=== PATIENT | male | born 1985 | race Caucasian/White ===

== ENCOUNTER 2017-09-02 19:33 | Emergency (ER) | payer SELFPAY ==
[2017-09-02] MEDS: IV NORMAL SALINE 1000ML BAG 1,000 ML IV (20:37)
[2017-09-02 20:38] LABS: ADD MAN DIFF? NO
[2017-09-02 20:41] LABS: BASO % 0 % (0-3); EOS % 1 % (0-3); HEMATOCRIT 46.3 % (39.0-53.0); LYMPH # 1.2 x10^3/uL (1.0-4.8); LYMPH % 17 % (24-48); MEAN CORPUSCULAR HEMOGLOBIN 31 pg (25-35); MEAN CORPUSCULAR HGB CONC 34 g/dL (31-37); MEAN CORPUSCULAR VOLUME 91 fL (79-100); MONO # 0.4 x10^3/uL (0.0-1.1); MONO % 6 % (0-9); NEUT # 5.7 x10^3uL (1.8-7.7); NEUT % 77 % (31-73); PLATELET COUNT 337 x10^3/uL (140-400); RED BLOOD COUNT 5.09 x10^6/uL (4.30-5.70); RED CELL DISTRIBUTION WIDTH 13.6 % (11.5-14.5); WHITE BLOOD COUNT 7.4 x10^3/uL (4.0-11.0)
[2017-09-02 20:51] LABS: ETHANOL < 10 mg/dL (0-10)
[2017-09-02 20:54] LABS: ANION GAP 8 (6-14); BLOOD UREA NITROGEN 8 mg/dL (8-26); BUN/CREATININE RATIO 8 (6-20); CALCIUM 9.5 mg/dL (8.5-10.1); CARBON DIOXIDE 29 mmol/L (21-32); CHLORIDE 101 mmol/L (98-107); GFR 86.1; GLUCOSE 108 mg/dL (70-99); POTASSIUM 3.7 mmol/L (3.5-5.1); SODIUM 138 mmol/L (136-145)
[2017-09-02 21:04] LABS: ALBUMIN 4.5 g/dL (3.4-5.0); ALBUMIN/GLOBULIN RATIO 1.2 (1.0-1.7); ALK PHOS 102 U/L (46-116); ALT (SGPT) 27 U/L (16-63); AST (SGOT) 15 U/L (15-37); CKMB INDEX 0.6 % (0-4); CKMB MASS 0.5 ng/mL (0.0-3.6); CREATINE KINASE 81 U/L (39-308); MYOGLOBIN 31 ng/mL (16-96); TOTAL BILIRUBIN 0.3 mg/dL (0.2-1.0); TOTAL PROTEIN 8.2 g/dL (6.4-8.2)
[2017-09-02 21:25] LABS: BILIRUBIN,URINE NEGATIVE (NEG); CLARITY,URINE CLEAR; COLOR,URINE YELLOW; GLUCOSE,URINE NEGATIVE (NEG); NITRITE,URINE NEGATIVE (NEG); PROTEIN,URINE NEGATIVE (NEG-TRACE); UROBILINOGEN,URINE 0.2 mg/dL (0.2 mg/dL)
[2017-09-02 21:31] LABS: BACTERIA,URINE FEW /HPF (0-FEW); RBC,URINE 0 /HPF (0-2); SQUAMOUS EPITHELIAL CELL,UR OCC /LPF; WBC,URINE RARE /HPF (0-4)
[2017-09-02 21:41] LABS: BARBITURATES NEG (NEG); BENZODIAZEPINES NEG (NEG); CANNABINOIDS NEG (NEG); COCAINE NEG (NEG); METHADONE NEG (NEG); OPIATES NEG (NEG); PHENCYCLIDINE NEG (NEG)
[2017-09-02 21:42] LABS: AMPHETAMINE/METHAMPHETAMINE NEG (NEG); ETHANOL, URINE NEG (NEG)
== END 2017-09-02 22:43 | disposition home or self-care (01) ==
LOC: ER 19:33
DX: T67.5XXA Heat exhaustion, unspecified, initial encounter (principal); F10.10 Alcohol abuse, uncomplicated; Z72.0 Tobacco use; X58.XXXA Exposure to other specified factors, initial encounter; Y93.89 Activity, other specified; Y92.89 Other specified places as the place of occurrence of the external cause; Y99.8 Other external cause status
CPT/HCPCS: 36415; 71045; 80053; 80307; 81001; 82553; 83874; 85025; 99285-25; G0480; J7030

== ENCOUNTER 2018-05-17 10:11 | Emergency (ER) | payer SELFPAY ==
[~2018-05-17] VITALS: Ht 177.8 cm; Wt 86.2 kg
[2018-05-17 10:15] VITALS: BP 143/94
[2018-05-17] MEDS ORDERED: ALBUTEROL SULFATE 2.5 MG/3 ML NEBU. NEB ONE (10:45)
[2018-05-17] MEDS ORDERED: IPRATRPIUM/ALBUTEROL 0.5/2.5MG 3 ML NEBU. NEB ONE (11:00)
[2018-05-17] MEDS ORDERED: predniSONE 10 MG TABLET PO ONE (11:00)
--- NOTE | 2018-05-17 11:19 | RAD ---
CHEST PA LATERAL Technique: PA and lateral views of the chest were obtained. Clinical History: COUGH X1 WEEK, DECREASED LUNG SOUNDS. HX OF HYPERTENSION Comparison: September 02, 2017. Findings: The heart and pulmonary vasculature appear within normal limits. The lungs are clear. The pleural margins are clear. Impression: No acute chest process is seen. Electronically signed by: Cameron Horan III, MD (05/17/2018 11:16 AM) [facility]
[2018-05-17 11:20] LABS: INFLUENZA A PATIENT NEGATIVE (NEGATIVE); INFLUENZA B PATIENT NEGATIVE (NEGATIVE)
[2018-05-17] MEDS ORDERED: AZIT250T PO (11:31)
[2018-05-17] MEDS ORDERED: PRED50TA PO (11:31)
[2018-05-17] MEDS ORDERED: ALBU2.5V8 INH (11:31)
--- NOTE | 2018-05-17 11:32 | PHYS DOC ---
Past Medical History Past Medical History: Hypertension Past Surgical History: No Surgical History Alcohol Use: Rarely Additional Information: LAST INTAKE 6 MONTHS AGO Drug Use: Marijuana Adult General Chief Complaint Chief Complaint: COUGH HPI HPI Patient is a 32 year old male who presents with cough and cold symptoms 1 week. The patient states that he has generalized body aches and some shortness of breath. He denies earaches. He states that it started with a sore throat but that has resolved. He has tried [id number] cough and cold medication with little relief. Review of Systems Review of Systems Constitutional: Denies fever or chills [] Eyes: Denies change in visual acuity, redness, or eye pain [] HENT: Denies nasal congestion or sore throat [] Respiratory: See history of present illness Cardiovascular: No additional information not addressed in HPI [] GI: Denies abdominal pain, nausea, vomiting, bloody stools or diarrhea [] : Denies dysuria or hematuria [] Musculoskeletal: Denies back pain or joint pain [] Integument: Denies rash or skin lesions [] Neurologic: Denies headache, focal weakness or sensory changes [] Endocrine: Denies polyuria or polydipsia [] All other systems were reviewed and found to be within normal limits, except as documented in this note. Current Medications Current Medications Current Medications Medications (Trade) Dose Ordered Sig/[place] Start Time Stop Time Status Last Admin Dose Admin Albuterol Sulfate (Ventolin Neb Soln) 2.5 mg 1X ONCE 05/17/18 10:45 05/17/18 10:46 DC 05/17/18 10:47 2.5 MG Albuterol/ Ipratropium (Duoneb) 3 ml 1X ONCE 05/17/18 11:00 05/17/18 11:03 DC 05/17/18 11:08 3 ML Prednisone (Prednisone) 50 mg 1X ONCE 05/17/18 11:00 05/17/18 11:03 DC 05/17/18 11:41 50 MG Allergies Allergies Allergies Coded Allergies Type Severity Reaction Last Updated Verified No Known Drug Allergies 09/02/17 No Physical Exam Physical Exam Constitutional: Well developed, well nourished, no acute distress, non-toxic appearance. [] HENT: Normocephalic, atraumatic, bilateral tympanic membranes normal, oropharynx moist, no oral exudates, nose normal. [] Eyes: PERRLA, EOMI, conjunctiva normal, no discharge. [] Neck: Normal range of motion, no tenderness, supple, no stridor. [] Cardiovascular:Heart rate regular rhythm, no murmur [] Lungs & Thorax: Bilateral breath sounds clear to auscultation [] Abdomen: Bowel sounds normal, soft, no tenderness, no masses, no pulsatile masses. [] Skin: Warm, dry, no erythema, no rash. [] Back: No tenderness, no CVA tenderness. [] Extremities: No tenderness, no cyanosis, no clubbing, ROM intact, no edema. [] Neurologic: Alert and oriented X 3, normal motor function, normal sensory function, no focal deficits noted. [] Psychologic: Affect normal, judgement normal, mood normal. [] Current Patient Data Vital Signs Vital Signs Date Time Temp Pulse Resp B/P (MAP) Pulse Ox O2 Delivery O2 Flow Rate FiO2 05/17/18 11:10 Room Air 05/17/18 10:15 98.1 118 20 143/94 (110) 99 98.1 Lab Values Laboratory Tests Test 05/17/18 10:30 Influenza Type A Antigen Negative (NEGATIVE) Influenza Type B Antigen Negative (NEGATIVE) EKG EKG [] Radiology/Procedures Radiology/Procedures []PATIENT: KIMBER SUAZO [facility]: [id number]#: [id number] : 1985 LOCATION: ER AGE: 32 SEX: M EXAM STATUS: REG ER ORD. PHYSICIAN: RACHEL URIBE APRN REASON: cough x 1 week, decreased lung sound PROCEDURE: CHEST PA & LATERAL CHEST PA LATERAL Technique: PA and lateral views of the chest were obtained. Clinical History: COUGH X1 WEEK, DECREASED LUNG SOUNDS. HX OF HYPERTENSION Comparison: September 02, 2017. Findings: The heart and pulmonary vasculature appear within normal limits. The lungs are clear. The pleural margins are clear. Impression: No acute chest process is seen. Electronically signed by: Terrell Shi III, MD (05/17/2018 11:16 AM) [facility] DICTATED and SIGNED BY: TERRELL SHI III, MD DATE: 05/17/18 9588 Course & Med Decision Making Course & Med Decision Making Pertinent Labs and Imaging studies reviewed. (See chart for details) []The patient had an albuterol treatment followed by a DuoNeb with much improved lung sounds. He was also given prednisone in the emergency department. Tricia Disclaimer Tricia Disclaimer This electronic medical record was generated, in whole or in part, using a voice recognition dictation system. Departure Departure Impression: Primary Impression: Bronchitis Disposition: HOME, SELF-CARE Condition: STABLE Referrals: NO PCP (PCP) Patient Instructions: Bronchitis Additional Instructions: Take the medications as directed. Follow-up with your primary care provider in 4 days if not improving or return to the emergency department if worsening. Scripts Prednisone (PREDNISONE) 50 Mg Tablet 1 TAB PO DAILY for bronchitis, #5 TAB Prov: RACHEL URIBE APRN 05/17/18 Albuterol Sulfate (Proair Hfa) 8.5 Gm Hfa.aer.ad 1 PUFF INH PRN Q6HRS PRN for SHORTNESS OF BREATH, #1 INHALER Prov: RACHEL URIBE APRN 05/17/18 Azithromycin (ZITHROMAX) 250 Mg Tablet 1 PKG PO UD for bronchitis, #1 PKG Prov: RACHEL URIBE APRN 05/17/18 RACHEL URIBE APRN May 17, 2018 11:32
== END 2018-05-17 11:49 | disposition home or self-care (01) ==
LOC: ER 10:11
DX: J40 Bronchitis, not specified as acute or chronic (principal); M79.18 Myalgia, other site
CPT/HCPCS: 71046; 87804; 94640; 99284; J7512; J7613; J7620

== ENCOUNTER 2018-07-27 14:11 | Emergency (ER) | payer SELFPAY ==
[~2018-07-27] VITALS: Ht 177.8 cm; Wt 86.2 kg
[~2018-07-27 14:11] MED LIST: ALBU2.5V8 INH; AZIT250T PO; PRED50TA PO
[2018-07-27 14:15] VITALS: BP 143/85
[2018-07-27] MEDS ORDERED: DEXAMETHASONE 4 MG TABLET PO STA (15:08)
--- NOTE | 2018-07-27 15:19 | PHYS DOC ---
Past Medical History Past Medical History: Hypertension (ASHU TIRADO APRN) Past Surgical History: No Surgical History (ASHU TIRADO APRN) Alcohol Use: Rarely Drug Use: Marijuana (ASHU TIRADO APRN) Adult General Chief Complaint Chief Complaint: COUGH HPI HPI Patient is a 33 year old male who presents with cough x 3 days. Associated symptoms include runny nose, fatigue, and coughing up mucus. Has also been fe eling hot and cold. Does not complain of any pain. (ASHU TIRADO APRN) Review of Systems Review of Systems Constitutional: Reports hot/cold, denies fever Eyes: Denies change in visual acuity, redness, or eye pain [] HENT: Reports nasal congestion and runny nose but denies sore throat [] Respiratory: Reports cough but denies shortness of breath [] Cardiovascular: No additional information not addressed in HPI [] GI: Denies abdominal pain, nausea, vomiting, bloody stools or diarrhea [] : Denies dysuria or hematuria [] Musculoskeletal: Denies back pain or joint pain [] Integument: Denies rash or skin lesions [] Neurologic: Denies headache, focal weakness or sensory changes [] Endocrine: Denies polyuria or polydipsia [] Complete systems were reviewed and found to be within normal limits, except as documented in this note. (ASHU TIRADO APRN) Current Medications Current Medications Current Medications Medications (Trade) Dose Ordered Sig/[place] Start Time Stop Time Status Last Admin Dose Admin Dexamethasone (Decadron) 10 mg 1X STAT 07/27/18 15:08 07/27/18 15:09 DC 07/27/18 15:29 10 MG (ASHU ENGLE DO) Allergies Allergies Allergies Coded Allergies Type Severity Reaction Last Updated Verified No Known Drug Allergies 09/02/17 No (ASHU ENGLE DO) Physical Exam Physical Exam Constitutional: Well developed, well nourished, no acute distress, non-toxic appearance. [] HENT: Normocephalic, atraumatic, bilateral external ears normal, oropharynx moist, no oral exudates, nose normal. [] Eyes: PERRLA, EOMI, conjunctiva normal, no discharge. [] Neck: Normal range of motion, no tenderness, supple, no stridor. [] Cardiovascular:Heart rate regular rhythm, no murmur [] Lungs & Thorax: Bilateral breath sounds clear to auscultation [] Abdomen: Soft, no tenderness, no masses, no pulsatile masses. [] Skin: Warm, dry, no erythema, no rash. [] Back: No tenderness, no CVA tenderness. [] Extremities: No tenderness, no cyanosis, no clubbing, ROM intact, no edema. [] Neurologic: Alert and oriented X 3, normal motor function, normal sensory function, no focal deficits noted. [] Psychologic: Affect normal, judgement normal, mood normal. [] (ASHU TIRADO APRN) Current Patient Data Vital Signs Vital Signs Date Time Temp Pulse Resp B/P (MAP) Pulse Ox O2 Delivery O2 Flow Rate FiO2 07/27/18 14:15 97.8 90 20 143/85 (104) 100 Room Air 97.8 (ASHU ENGLE DO) EKG EKG [] (ASHU TIRADO APRN) Radiology/Procedures Radiology/Procedures []PATIENT: KIMBER SUAZO ORCCOUNT: [id number]#: [id number] : 1985 LOCATION: ER AGE: 33 SEX: M EXAM STATUS: REG ER ORD. PHYSICIAN: ASHU TIRADO APRN REASON: cough x 3 days PROCEDURE: CHEST PA & LATERAL PA and lateral chest radiographs 07/27/2018 Clinical History: Cough for 3 days. PA and lateral digital radiographs of the chest were obtained. Comparison study is dated 05/17/2018. The cardiac and mediastinal silhouettes are within normal limits in size and configuration. No pulmonary infiltrate is seen. No pleural effusion or pneumothorax is noted. The osseous structures are unchanged. Impression: No acute abnormality is seen. Electronically signed by: Thiago Jeffries MD (07/27/2018 3:35 PM) [facility] (ASHU TIRADO APRN) Course & Med Decision Making Course & Med Decision Making Pertinent Labs and Imaging studies reviewed. (See chart for details) Will get chest xray and give dexamethasone. Patient is agreeable. Chest x-ray is negative. Will dc home. (ASHU TIRADO APRN) Dragon Disclaimer Dragon Disclaimer This electronic medical record was generated, in whole or in part, using a voice recognition dictation system. (ASHU TIRADO APRN) Departure Departure Impression: Primary Impression: Bronchitis Disposition: HOME, SELF-CARE Condition: STABLE Referrals: NO PCP (PCP) Patient Instructions: Acute Bronchitis Additional Instructions: Follow up with your primary care doctor. Return to ER if symptoms worsen. Scripts Benzonatate (TESSALON PERLE) 100 Mg Capsule 1 CAP PO TID PRN for COUGH, #21 CAP Prov: ASHU TIRADO APRN 07/27/18 Attending Signature Attending Signature I have reviewed the PA/EMPLOYMENT PROGRAMS ANALYST's note and plan of care. I was available for consultation as needed during the patient's visit in the emergency department. I agree with the clinical impression, plan, and disposition. (ASHU ENGLE DO) ASHU TIRADO APRN July 27, 2018 15:19 ASHU ENGLE DO July 29, 2018 01:21
--- NOTE | 2018-07-27 15:39 | RAD ---
PA and lateral chest radiographs 07/27/2018 Clinical History: Cough for 3 days. PA and lateral digital radiographs of the chest were obtained. Comparison study is dated 05/17/2018. The cardiac and mediastinal silhouettes are within normal limits in size and configuration. No pulmonary infiltrate is seen. No pleural effusion or pneumothorax is noted. The osseous structures are unchanged. Impression: No acute abnormality is seen. Electronically signed by: Thiago Jeffries MD (07/27/2018 3:35 PM) [facility]
[2018-07-27] MEDS ORDERED: BENZ100C PO (15:43)
== END 2018-07-27 15:57 | disposition home or self-care (01) ==
LOC: ER 14:11
DX: J40 Bronchitis, not specified as acute or chronic (principal); R53.83 Other fatigue; I10 Essential (primary) hypertension
CPT/HCPCS: 71046; 99284; J8540

== ENCOUNTER 2018-09-11 00:57 | Emergency (ER) | payer SELFPAY ==
[~2018-09-11] VITALS: Ht 177.8 cm; Wt 81.6 kg
[~2018-09-11 00:57] MED LIST changes: +BENZ100C PO
[2018-09-11 01:57] LABS: BASO % 0 % (0-3); EOS # 0.1 x10^3/uL (0.0-0.7); EOS % 1 % (0-3); HEMATOCRIT 47.3 % (39.0-53.0); HEMOGLOBIN 16.3 g/dL (13.0-17.5); LYMPH # 2.3 x10^3/uL (1.0-4.8); LYMPH % 27 % (24-48); MEAN CORPUSCULAR HEMOGLOBIN 31 pg (25-35); MEAN CORPUSCULAR HGB CONC 35 g/dL (31-37); MEAN CORPUSCULAR VOLUME 90 fL (79-100); MONO # 1.1 x10^3/uL (0.0-1.1); MONO % 13 % (0-9); NEUT # 4.9 x10^3uL (1.8-7.7); NEUT % 59 % (31-73); PLATELET COUNT 284 x10^3/uL (140-400); RED BLOOD COUNT 5.25 x10^6/uL (4.30-5.70); RED CELL DISTRIBUTION WIDTH 13.5 % (11.5-14.5); WHITE BLOOD COUNT 8.4 x10^3/uL (4.0-11.0)
[2018-09-11 02:00] LABS: BILIRUBIN,URINE NEGATIVE (NEG); CLARITY,URINE CLEAR; COLOR,URINE YELLOW; NITRITE,URINE NEGATIVE (NEG); PROTEIN,URINE NEGATIVE (NEG-TRACE); UROBILINOGEN,URINE 0.2 mg/dL (0.2 mg/dL)
[2018-09-11] MEDS ORDERED: IV NORMAL SALINE 1000ML BAG 1,000 ML IV ONE (02:00)
[2018-09-11 02:05] LABS: BACTERIA,URINE 0 /HPF (0-FEW); RBC,URINE 0 /HPF (0-2); SQUAMOUS EPITHELIAL CELL,UR OCC /LPF; WBC,URINE 0 /HPF (0-4)
[2018-09-11 02:08] LABS: CALCIUM 9.4 mg/dL (8.5-10.1); CREATININE 0.9 mg/dL (0.7-1.3); GFR 96.6; POTASSIUM 3.2 mmol/L (3.5-5.1)
[2018-09-11 02:14] LABS: ALBUMIN 4.5 g/dL (3.4-5.0); ALBUMIN/GLOBULIN RATIO 1.3 (1.0-1.7); TOTAL BILIRUBIN 0.5 mg/dL (0.2-1.0)
[2018-09-11 03:00] VITALS: BP 129/68
[2018-09-11] MEDS ORDERED: LORA-434 PO (03:11)
--- NOTE | 2018-09-11 04:29 | PHYS DOC ---
Past Medical History Past Medical History: Hypertension Past Surgical History: No Surgical History Alcohol Use: None Drug Use: None Adult General Chief Complaint Chief Complaint: MULTIPLE COMPLAINTS HPI HPI Patient is a 33 year old male presents the emergency room chief complaint of just not feeling right he is very shaky all day today. He was moving furniture he was making him very tired he was feeling very anxious he was feeling his heart was racing he just wasn't feeling good overall he is feeling nauseous. No chest pain he said he has felt this way before and it has been his anxiety but he just wanted to come in to get checked out. Review of Systems Review of Systems Constitutional: Denies fever or chills [] Eyes: Denies change in visual acuity, redness, or eye pain [] HENT: Denies nasal congestion or sore throat [] Respiratory: GI: Denies abdominal pain, nausea, vomiting, bloody stools or diarrhea [] : Denies dysuria or hematuria [] Musculoskeletal: Denies back pain or joint pain [] Integument: Denies rash or skin lesions [] Neurologic: Denies headache, focal weakness or sensory changes [] Endocrine: Denies polyuria or polydipsia [] All other systems were reviewed and found to be within normal limits, except as documented in this note. Current Medications Current Medications Current Medications Medications (Trade) Dose Ordered Sig/[place] Start Time Stop Time Status Last Admin Dose Admin Lorazepam (Ativan Inj) 1 mg 1X ONCE 09/11/18 02:00 09/11/18 02:01 DC 09/11/18 02:08 1 MG Sodium Chloride 1,000 ml @ 1,000 mls/hr 1X ONCE 09/11/18 02:00 09/11/18 02:59 DC 09/11/18 02:07 1,000 MLS/HR Allergies Allergies Allergies Coded Allergies Type Severity Reaction Last Updated Verified No Known Drug Allergies 09/02/17 No Physical Exam Physical Exam Constitutional: Well developed, well nourished, no acute distress, non-toxic appearance. [] HENT: Normocephalic, atraumatic, bilateral external ears normal, oropharynx moist, no oral exudates, nose normal. [] Eyes: PERRLA, EOMI, conjunctiva normal, no discharge. [] Neck: Normal range of motion, no tenderness, supple, no stridor. [] Cardiovascular:Heart rate regular rhythm, no murmur [] Lungs & Thorax: Bilateral breath sounds clear to auscultation [] Abdomen: Bowel sounds normal, soft, no tenderness, no masses, no pulsatile masses. [] Skin: Warm, dry, no erythema, no rash. [] Back: No tenderness, no CVA tenderness. [] Extremities: No tenderness, no cyanosis, no clubbing, ROM intact, no edema. [] Neurologic: Alert and oriented X 3, normal motor function, normal sensory function, no focal deficits noted. [] Psychologic: Psychomotor agitation patient has mild anxiety on examination otherwise normal. Current Patient Data Vital Signs Vital Signs Date Time Temp Pulse Resp B/P (MAP) Pulse Ox O2 Delivery O2 Flow Rate FiO2 09/11/18 03:00 99 129/68 (88) 73 09/11/18 01:08 97.9 16 Room Air 97.9 Lab Values Laboratory Tests Test 09/11/18 01:30 09/11/18 01:37 Urine Collection Type Unknown Urine Color Yellow Urine Clarity Clear Urine pH 6.0 Urine Specific [place] <=1.005 Urine Protein Negative mg/dL (NEG-TRACE) Urine Glucose (UA) Negative mg/dL (NEG) Urine Ketones (Stick) Negative mg/dL (NEG) Urine Blood Negative (NEG) Urine Nitrite Negative (NEG) Urine Bilirubin Negative (NEG) Urine Urobilinogen Dipstick 0.2 mg/dL (0.2 mg/dL) Urine Leukocyte Esterase Negative (NEG) Urine RBC 0 /HPF (0-2) Urine WBC 0 /HPF (0-4) Urine Squamous Epithelial Cells Occ /LPF Urine Bacteria 0 /HPF (0-FEW) White Blood Count 8.4 x10^3/uL (4.0-11.0) Red Blood Count 5.25 x10^6/uL (4.30-5.70) Hemoglobin 16.3 g/dL (13.0-17.5) Hematocrit 47.3 % (39.0-53.0) Mean Corpuscular Volume 90 fL (79-100) Mean Corpuscular Hemoglobin 31 pg (25-35) Mean Corpuscular Hemoglobin Concent 35 g/dL (31-37) Red Cell Distribution Width 13.5 % (11.5-14.5) Platelet Count 284 x10^3/uL (140-400) Neutrophils (%) (Auto) 59 % (31-73) Lymphocytes (%) (Auto) 27 % (24-48) Monocytes (%) (Auto) 13 % (0-9) H Eosinophils (%) (Auto) 1 % (0-3) Basophils (%) (Auto) 0 % (0-3) Neutrophils # (Auto) 4.9 x10^3uL (1.8-7.7) Lymphocytes # (Auto) 2.3 x10^3/uL (1.0-4.8) Monocytes # (Auto) 1.1 x10^3/uL (0.0-1.1) Eosinophils # (Auto) 0.1 x10^3/uL (0.0-0.7) Basophils # (Auto) 0.0 x10^3/uL (0.0-0.2) Sodium Level 139 mmol/L (136-145) Potassium Level 3.2 mmol/L (3.5-5.1) L Chloride Level 101 mmol/L (98-107) Carbon Dioxide Level 31 mmol/L (21-32) Anion Gap 7 (6-14) Blood Urea Nitrogen 9 mg/dL (8-26) Creatinine 0.9 mg/dL (0.7-1.3) Estimated GFR (Cockcroft-Gault) 96.6 BUN/Creatinine Ratio 10 (6-20) Glucose Level 97 mg/dL (70-99) Calcium Level 9.4 mg/dL (8.5-10.1) Total Bilirubin 0.5 mg/dL (0.2-1.0) Aspartate Amino Transferase (AST) 22 U/L (15-37) Alanine Aminotransferase (ALT) 38 U/L (16-63) Alkaline Phosphatase 87 U/L (46-116) Troponin I Quantitative < 0.017 ng/mL (0.000-0.055) Total Protein 8.0 g/dL (6.4-8.2) Albumin 4.5 g/dL (3.4-5.0) Albumin/Globulin Ratio 1.3 (1.0-1.7) Laboratory Tests 09/11/18 01:37 Laboratory Tests 09/11/18 01:37 EKG EKG []Normal sinus rhythm rate of 97 no acute ischemic changes noted no STEMI interpreted by me time of encounter Radiology/Procedures Radiology/Procedures [] Course & Med Decision Making Course & Med Decision Making Pertinent Labs and Imaging studies reviewed. (See chart for details) []33-year-old male with history of hypertension and anxiety who is presenting with sensation of just feeling shaky overall today some mild fatigue some mild nausea labs normal abdomen nontender neuro intact EKG troponin negative for any type of ischemia this does not sound like a cardiac issue at this time. Patient was given Ativan with improvement in his symptoms and was discharged home in stable condition with prescription for same return precautions discussed Dragon Disclaimer Dragon Disclaimer This electronic medical record was generated, in whole or in part, using a voice recognition dictation system. Departure Departure Impression: Primary Impression: Anxiety Disposition: 01 HOME, SELF-CARE Condition: STABLE Patient Instructions: Anxiety and Panic Attacks, [id number] Scripts Lorazepam (ATIVAN) 1 Mg Tablet 1 MG PO BID PRN for ANXIETY / AGITATION, #20 TAB Prov: ITALIA MERCEDES MD 09/11/18 ITALIA MERCEDES MD Sep 11, 2018 04:29
--- NOTE | 2018-09-11 05:56 | EKG ---
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
== END 2018-09-11 03:15 | disposition home or self-care (01) ==
LOC: ER 00:57
DX: F41.9 Anxiety disorder, unspecified (principal); R45.1 Restlessness and agitation; I10 Essential (primary) hypertension
CPT/HCPCS: 36415; 80053; 81001; 84484; 85025; 93005; 96374; 99285; J2060; J7030; 99284

== ENCOUNTER 2020-11-14 20:59 | Emergency (ER) | payer SELFPAY ==
[~2020-11-14 20:59] MED LIST changes: +LORA-434 PO
== END 2020-11-14 23:46 | disposition left against medical advice (07) ==
LOC: ER 20:59
DX: R06.02 Shortness of breath (principal); Z53.21 Procedure and treatment not carried out due to patient leaving prior to being seen by health care provider

== ENCOUNTER 2021-07-03 12:39 | Emergency (ER) | payer SELFPAY ==
[~2021-07-03] VITALS: Ht 177.8 cm; Wt 83.0 kg
[2021-07-03] MEDS ORDERED: LORazepam 0.5 MG TABLET PO ONE (13:30)
[2021-07-03] MEDS ORDERED: IV NORMAL SALINE 1000ML BAG 1,000 ML IV ONE (13:30)
[2021-07-03 13:34] LABS: BASO % 0 % (0-3); EOS % 0 % (0-3); HEMATOCRIT 43.1 % (39.0-53.0); HEMOGLOBIN 14.3 g/dL (13.0-17.5); LYMPH # 0.7 x10^3/uL (1.0-4.8); LYMPH % 5 % (24-48); MEAN CORPUSCULAR HEMOGLOBIN 30 pg (25-35); MEAN CORPUSCULAR HGB CONC 33 g/dL (31-37); MEAN CORPUSCULAR VOLUME 90 fL (79-100); MONO # 0.6 x10^3/uL (0.0-1.1); MONO % 4 % (0-9); NEUT # 12.6 x10^3/uL (1.8-7.7); NEUT % 91 % (31-73); PLATELET COUNT 345 x10^3/uL (140-400); RED BLOOD COUNT 4.81 x10^6/uL (4.30-5.70); RED CELL DISTRIBUTION WIDTH 12.8 % (11.5-14.5); WHITE BLOOD COUNT 13.9 x10^3/uL (4.0-11.0)
--- NOTE | 2021-07-03 13:39 | RAD ---
XR CHEST 1V History: Reason: palpitations / Spl. Instructions: / History: Comparison: July 27, 2018 Findings: No consolidation or pleural effusion. Normal heart size. No pneumothorax. Impression: 1. No acute cardiopulmonary process. Electronically signed by: Gennaro Smith DO (07/03/2021 1:37 PM) [facility]
[2021-07-03 13:41] LABS: BARBITURATES NEG (NEG); BENZODIAZEPINES NEG (NEG); CANNABINOIDS NEG (NEG); COCAINE NEG (NEG); METHADONE NEG (NEG); OPIATES NEG (NEG); PHENCYCLIDINE NEG (NEG)
[2021-07-03 13:42] LABS: CALCIUM 9.3 mg/dL (8.5-10.1); CREATININE 0.7 mg/dL (0.7-1.3); GFR 126.9; POTASSIUM 3.6 mmol/L (3.5-5.1)
[2021-07-03 13:46] LABS: AMPHETAMINE/METHAMPHETAMINE NEG (NEG)
[2021-07-03 13:48] LABS: ALBUMIN 4.4 g/dL (3.4-5.0); ALBUMIN/GLOBULIN RATIO 1.2 (1.0-1.7); MAGNESIUM 1.8 mg/dL (1.8-2.4); TOTAL BILIRUBIN 1.2 mg/dL (0.2-1.0)
--- NOTE | 2021-07-03 13:49 | PHYS DOC ---
Past Medical History Past Medical History: Anxiety, Hypertension Past Surgical History: No Surgical History Smoking Status: Former Smoker Alcohol Use: None Drug Use: None General Adult EDM: Chief Complaint: RAPID HEART RATE HPI: HPI: Patient is a 36 year old male with history of anxiety, hypertension, who presents to the ED today complaining of rapid heart rate, patient states this morning he noted his heart rate was faster than normal. He states he has had similar faster heart rates multiple times before and has been worked up and he was told it is anxiety that triggers his symptoms. [facility] He states he was noted to have high blood pressure and his heart rate was fast. They sent him to the ED. Patient states he is does not take any blood pressure medicine or anxiety medicines because he does not like how they make him feel though he reports he took "a pill" from a friend for his symptoms and he feels better. Denies any chest pain, denies any shortness of breath. Review of Systems: Review of Systems: Constitutional: Denies fever or chills. [] Eyes: Denies change in visual acuity. [] HENT: Denies nasal congestion or sore throat. [] Respiratory: Denies cough or shortness of breath. [] Cardiovascular: Reports rapid heart rate, reports her blood pressure GI: Denies abdominal pain, nausea, vomiting, bloody stools or diarrhea. [] : Denies dysuria. [] Musculoskeletal: Denies back pain or joint pain. [] Integument: Denies rash. [] Neurologic: Denies headache, focal weakness or sensory changes. [] Psychiatric: Denies depression or anxiety. [] Heart Score: C/O Chest Pain: N/A Risk Factors: Risk Factors: DM, Current or recent (<one month) smoker, HTN, HLP, family history of CAD, obesity. Risk Scores: Score 0 - 3: 2.5% MACE over next 6 weeks - Discharge Home Score 4 - 6: 20.3% MACE over next 6 weeks - Admit for Clinical Observation Score 7 - 10: 72.7% MACE over next 6 weeks - Early Invasive Strategies Current Medications: Current Medications Medications (Trade) Dose Ordered Sig/[place] Start Time Stop Time Status Last Admin Dose Admin Lorazepam (Ativan) 0.5 mg 1X ONCE 07/03/21 13:30 07/03/21 13:31 DC Sodium Chloride 1,000 ml @ 1,000 mls/hr 1X ONCE 07/03/21 13:30 07/03/21 14:29 Allergies: Allergies: Allergies Coded Allergies Type Severity Reaction Last Updated Verified No Known Drug Allergies 09/02/17 No Physical Exam: PE: Constitutional: Well developed, well nourished, no acute distress, non-toxic appearance. [] HENT: Normocephalic, atraumatic, bilateral external ears normal, oropharynx moist, no oral exudates, nose normal. [] Eyes: PERRLA, EOMI, conjunctiva normal, no discharge. [] Neck: Normal range of motion, no tenderness, supple, no stridor. [] Cardiovascular: Tachycardic Lungs & Thorax: Bilateral breath sounds clear to auscultation [] Abdomen: Bowel sounds normal, soft, no tenderness, no masses, no pulsatile masses. [] Skin: Warm, dry, no erythema, no rash. [] Back: No tenderness, no CVA tenderness. [] Extremities: No tenderness, no cyanosis, no clubbing, ROM intact, no edema. [] Neurologic: Alert and oriented X 3, normal motor function, normal sensory function, no focal deficits noted. [] Psychologic: Affect normal, judgement normal, mood normal. [] Current Patient Data: Labs: Laboratory Tests Test 07/03/21 12:55 07/03/21 13:08 Urine Opiates Screen Neg (NEG) Urine Methadone Screen Neg (NEG) Urine Barbiturates Neg (NEG) Urine Phencyclidine Screen Neg (NEG) Urine Amphetamine/Methamphetamine Neg (NEG) Urine Benzodiazepines Screen Neg (NEG) Urine Cocaine Screen Neg (NEG) Urine Cannabinoids Screen Neg (NEG) Urine Ethyl Alcohol Neg (NEG) White Blood Count 13.9 x10^3/uL (4.0-11.0) H Red Blood Count 4.81 x10^6/uL (4.30-5.70) Hemoglobin 14.3 g/dL (13.0-17.5) Hematocrit 43.1 % (39.0-53.0) Mean Corpuscular Volume 90 fL (79-100) Mean Corpuscular Hemoglobin 30 pg (25-35) Mean Corpuscular Hemoglobin Concent 33 g/dL (31-37) Red Cell Distribution Width 12.8 % (11.5-14.5) Platelet Count 345 x10^3/uL (140-400) Neutrophils (%) (Auto) 91 % (31-73) H Lymphocytes (%) (Auto) 5 % (24-48) L Monocytes (%) (Auto) 4 % (0-9) Eosinophils (%) (Auto) 0 % (0-3) Basophils (%) (Auto) 0 % (0-3) Neutrophils # (Auto) 12.6 x10^3/uL (1.8-7.7) H Lymphocytes # (Auto) 0.7 x10^3/uL (1.0-4.8) L Monocytes # (Auto) 0.6 x10^3/uL (0.0-1.1) Eosinophils # (Auto) 0.0 x10^3/uL (0.0-0.7) Basophils # (Auto) 0.0 x10^3/uL (0.0-0.2) Platelet Estimate Pending Sodium Level 130 mmol/L (136-145) L Potassium Level 3.6 mmol/L (3.5-5.1) Chloride Level 94 mmol/L (98-107) L Carbon Dioxide Level 26 mmol/L (21-32) Anion Gap 10 (6-14) Blood Urea Nitrogen 7 mg/dL (8-26) L Creatinine 0.7 mg/dL (0.7-1.3) Estimated GFR (Cockcroft-Gault) 126.9 BUN/Creatinine Ratio 10 (6-20) Glucose Level 100 mg/dL (70-99) H Calcium Level 9.3 mg/dL (8.5-10.1) Magnesium Level Pending Total Bilirubin Pending Aspartate Amino Transferase (AST) Pending Alanine Aminotransferase (ALT) Pending Alkaline Phosphatase Pending Total Protein Pending Albumin Pending Albumin/Globulin Ratio Pending Laboratory Tests 07/03/21 13:08 Laboratory Tests 07/03/21 13:08 Vital Signs: Vital Signs Date Time Temp Pulse Resp B/P (MAP) Pulse Ox O2 Delivery O2 Flow Rate FiO2 07/03/21 12:42 98.3 140 18 174/82 (112) 100 Room Air 98.3 EKG: EK interpreted by Dr. Beltran sinus tachycardia heart rate 121 no STEMI EKG compared to the one done September 11 2018, no acute changes noted Radiology/Procedures: Radiology/Procedures: []PROCEDURE: PORTABLE CHEST 1V XR CHEST 1V History: Reason: palpitations / Spl. Instructions: / History: Comparison: July 27, 2018 Findings: No consolidation or pleural effusion. Normal heart size. No pneumothorax. Impression: 1. No acute cardiopulmonary process. Electronically signed by: Gennaro Leyva DO (07/03/2021 1:37 PM) [facility] DICTATED and SIGNED BY: GENNARO LEYVA DO DATE: 07/03/21 0661 Course & Med Decision Making: Course & Med Decision Making Pertinent Labs and Imaging studies reviewed. (See chart for details) This a 36-year-old male patient with history of anxiety, hypertension, presenting to the ED today complaining of rapid heart rate that began this morning. He reports his anxiety triggers this rapid heart rate. His blood pressure is also high but he is not on any medicines. Heart rate on arrival to the ED is 140, rhythm sinus tach, blood pressure 174/82 Patient was given a liter of fluid and Ativan. CBC with a WBC of 13.9, CMP with sodium of 131, glucose 100, no gap. UA negative for infection, chest x-ray negative, UDS negative. D-dimer 0.49. Heart rate has come down to 100 and below. Blood pressure has also come down to 140s over 70s. Provided patient to PCP for follow-up. Provided a lock operator for follow-up as well as [facility] for anxiety Provided patient return precautions Dragon Disclaimer: Dragon Disclaimer: This electronic medical record was generated, in whole or in part, using a voice recognition dictation system. Departure Departure Impression: Primary Impression: Anxiety Additional Impressions: Tachycardia High blood pressure Qualified Codes: I10 - Essential (primary) hypertension Disposition: HOME / SELF CARE / HOMELESS Condition: STABLE Referrals: NO PCP (PCP) follow up with your primary care doctor as well as [facility] health KRISTINA GARNER MD follow up in one week Patient Instructions: Anxiety and Panic Attacks, Hypertension, Nonspecific Tachycardia Additional Instructions: You were evaluated in the emergency room for rapid heart rate, high blood pressure and anxiety. We highly recommend you follow-up with your primary care doctor, the provided lock operator as well as [facility] for anxiety. MUTMERCY CASTANEDA ESTHETICIAN Jul 03, 2021 13:49
[2021-07-03 14:05] LABS: BACTERIA,URINE 0 /HPF (0-FEW)
[2021-07-03 15:46] VITALS: BP 132/88
--- NOTE | 2021-07-03 15:46 | EKG ---
[facility] [address] [place] [address] Test Date: 2021-07-03 Test Time: 12:54:00 Pat Name: KIMBER SUAZO Department: Room: Gender: M Vessel Specialist: : 1985 Requested By: MERCY DELEON Order Number: [id number] Reading MD: Olvin Peterson Measurements Intervals [place] Rate: 121 P: 96 [place]: 140 QRS: 72 QRSD: 82 T: 54 QT: 314 QTc: 449 Interpretive Statements SINUS TACHYCARDIA Electronically Signed On 07-05-2021 18:19:34 CDT by Olvin Peterson
[2021-07-03 16:03] LABS: % BANDS 5 % (0-9); % LYMPHS 5 % (24-48); % MONOS 1 % (0-10); % SEGS 89 % (35-66); PLT ESTIMATE ADEQUATE (ADEQUATE)
== END 2021-07-03 15:54 | disposition home or self-care (01) ==
LOC: ER 12:39
DX: R00.0 Tachycardia, unspecified (principal); F41.9 Anxiety disorder, unspecified; I10 Essential (primary) hypertension; Z87.891 Personal history of nicotine dependence
CPT/HCPCS: 36415; 71045; 80053; 80307; 81001; 83735; 83880; 84484; 85007; 85025; 85379; 93005; 96360; 99285; J7030

== ENCOUNTER 2021-07-16 23:08 | Inpatient (IN) | payer SELFPAY ==
[~2021-07-16] VITALS: Ht 177.8 cm; Wt 78.0 kg
[2021-07-17] VITALS (12 sets, daily range): BP systolic 113–156; BP diastolic 70–85
--- NOTE | 2021-07-17 00:11 | PHYS DOC ---
Past Medical History Past Medical History: Anxiety, Hypertension Past Surgical History: No Surgical History Smoking Status: Never Smoker Alcohol Use: None Drug Use: None General Adult EDM: Chief Complaint: SKIN PROBLEM HPI: HPI: Patient is a 36 year old male who presented to the ER for evaluation of a tender mass on left inner thigh area that has been going on for 4 days. No fever, no injury. Patient is not sure what happened, started having pain 4 days ago and noted the swelling then. The last two days it became more painful. He denies history of diabetic, denies any injury, no abdominal pain, no chest pain, no trouble breathing Review of Systems: Review of Systems: Constitutional: Denies fever or chills. [] Eyes: Denies change in visual acuity. [] HENT: Denies nasal congestion or sore throat. [] Respiratory: Denies cough or shortness of breath. [] Cardiovascular: Denies chest pain or edema. [] GI: Denies abdominal pain, nausea, vomiting, bloody stools or diarrhea. [] : Denies dysuria. [] Musculoskeletal: Denies back pain or joint pain. [] Integument: Positive for tender swollen area on the left groin area Neurologic: Denies headache, focal weakness or sensory changes. [] Endocrine: Denies polyuria or polydipsia. [] Lymphatic: Denies swollen glands. [] Psychiatric: Denies depression or anxiety. [] Heart Score: C/O Chest Pain: N/A Risk Factors: Risk Factors: DM, Current or recent (<one month) smoker, HTN, HLP, family history of CAD, obesity. Risk Scores: Score 0 - 3: 2.5% MACE over next 6 weeks - Discharge Home Score 4 - 6: 20.3% MACE over next 6 weeks - Admit for Clinical Observation Score 7 - 10: 72.7% MACE over next 6 weeks - Early Invasive Strategies Allergies: Allergies: Allergies Coded Allergies Type Severity Reaction Last Updated Verified No Known Drug Allergies 09/02/17 No Physical Exam: PE: Constitutional: Well developed, well nourished, no acute distress, non-toxic appearance. [] HENT: Normocephalic, atraumatic, bilateral external ears normal, oropharynx moist, no oral exudates, nose normal. [] Eyes: PERRLA, EOMI, conjunctiva normal, no discharge. [] Neck: Normal range of motion, no tenderness, supple, no stridor. [] Cardiovascular:Heart rate regular rhythm, no murmur [] Lungs & Thorax: Bilateral breath sounds clear to auscultation [] Abdomen: Bowel sounds normal, soft, no tenderness, no masses, no pulsatile masses. [] Skin: Warm, dry, there is a large tender mass on the inner part of proximal left thigh area measuring 14 cm by 10 cm indurated, erythema. Back: No tenderness, no CVA tenderness. [] Extremities: No tenderness, no cyanosis, no clubbing, ROM intact, no edema. [] Neurologic: Alert and oriented X 3, normal motor function, normal sensory function, no focal deficits noted. [] Psychologic: Affect normal, judgement normal, mood normal. [] Current Patient Data: Labs: Laboratory Tests Test 07/17/21 00:28 07/17/21 00:41 White Blood Count 21.4 x10^3/uL Red Blood Count 4.51 x10^6/uL Hemoglobin 13.7 g/dL Hematocrit 39.7 % Mean Corpuscular Volume 88 fL Mean Corpuscular Hemoglobin 30 pg Mean Corpuscular Hemoglobin Concent 34 g/dL Red Cell Distribution Width 13.1 % Platelet Count 443 x10^3/uL Neutrophils (%) (Auto) 86 % Lymphocytes (%) (Auto) 5 % Monocytes (%) (Auto) 8 % Eosinophils (%) (Auto) 0 % Basophils (%) (Auto) 1 % Neutrophils # (Auto) 18.3 x10^3/uL Lymphocytes # (Auto) 1.1 x10^3/uL Monocytes # (Auto) 1.8 x10^3/uL Eosinophils # (Auto) 0.0 x10^3/uL Basophils # (Auto) 0.1 x10^3/uL Sodium Level 133 mmol/L Potassium Level 3.2 mmol/L Chloride Level 97 mmol/L Carbon Dioxide Level 26 mmol/L Anion Gap 10 Blood Urea Nitrogen 8 mg/dL Creatinine 1.0 mg/dL Estimated GFR (Cockcroft-Gault) 84.1 BUN/Creatinine Ratio 8 Glucose Level 148 mg/dL Calcium Level 9.0 mg/dL Total Bilirubin 0.5 mg/dL Aspartate Amino Transf (AST/SGOT) 73 U/L Alanine Aminotransferase (ALT/SGPT) 119 U/L Alkaline Phosphatase 127 U/L Total Protein 8.3 g/dL Albumin 3.3 g/dL Albumin/Globulin Ratio 0.7 SARS-CoV-2 Antigen (Rapid) Negative Current Medications Medications (Trade) Dose Ordered Sig/[place] Route PRN Reason Start Time Stop Time Status Last Admin Dose Admin Vancomycin HCl 1.5 gm/Sodium Chloride 500 ml @ 250 mls/hr 1X ONCE IV 07/17/21 00:30 07/17/21 02:29 07/17/21 00:33 Sodium Chloride 1,000 ml @ 1,000 mls/hr 1X ONCE IV 07/17/21 00:15 07/17/21 01:14 DC Potassium Chloride (Klor-Con) 40 meq 1X ONCE PO 07/17/21 01:15 07/17/21 01:16 DC Vital Signs: Vital Signs Date Time Temp Pulse Resp B/P (MAP) Pulse Ox O2 Delivery O2 Flow Rate FiO2 07/16/21 23:22 98.7 110 18 168/95 (119) 100 Room Air 98.7 EKG: EKG: [] Radiology/Procedures: Radiology/Procedures: [] Course & Med Decision Making: Course & Med Decision Making Pertinent Labs and Imaging studies reviewed. (See chart for details) Patient is a 36-year-old male who presented to ER with 4-day history of left groin swelling and pain. Patient does have an area of 14 CM x 10 cm indurated lesion on the inner part of the proximal left THIGH suspicious for abscess with cellulitis. Patient was given IV vancomycin and Ancef in ER. Due to the size of this infection and the location of the infection, patient will need to be admitted to hospital, general surgery will be consulted for I&D. Tricia Disclaimer: Tricia Disclaimer: This electronic medical record was generated, in whole or in part, using a voice recognition dictation system. Departure Departure Impression: Primary Impression: Abscess or cellulitis of thigh Disposition: ADMITTED INPATIENT Admitting Physician: NNEKA (DR. JACKSON) Condition: STABLE Referrals: NO PCP (PCP) SUSHIL OTOOLE DO July 17, 2021 00:11
[2021-07-17] MEDS ORDERED: IV NORMAL SALINE 1000ML BAG 1,000 ML IV ONE (00:15)
[2021-07-17] MEDS ORDERED: VANCOMYCIN 1.5 GM in IV NORMAL SALINE 500ML BAG 500 ML IV ONE (00:30)
[2021-07-17 00:43] LABS: BASO # 0.1 x10^3/uL (0.0-0.2); BASO % 1 % (0-3); EOS % 0 % (0-3); HEMATOCRIT 39.7 % (39.0-53.0); HEMOGLOBIN 13.7 g/dL (13.0-17.5); LYMPH # 1.1 x10^3/uL (1.0-4.8); LYMPH % 5 % (24-48); MEAN CORPUSCULAR HEMOGLOBIN 30 pg (25-35); MEAN CORPUSCULAR HGB CONC 34 g/dL (31-37); MEAN CORPUSCULAR VOLUME 88 fL (79-100); MONO # 1.8 x10^3/uL (0.0-1.1); MONO % 8 % (0-9); NEUT # 18.3 x10^3/uL (1.8-7.7); NEUT % 86 % (31-73); PLATELET COUNT 443 x10^3/uL (140-400); RED BLOOD COUNT 4.51 x10^6/uL (4.30-5.70); RED CELL DISTRIBUTION WIDTH 13.1 % (11.5-14.5); WHITE BLOOD COUNT 21.4 x10^3/uL (4.0-11.0)
[2021-07-17 00:54] LABS: GFR 84.1; POTASSIUM 3.2 mmol/L (3.5-5.1)
[2021-07-17 01:00] LABS: ALBUMIN 3.3 g/dL (3.4-5.0); ALBUMIN/GLOBULIN RATIO 0.7 (1.0-1.7); TOTAL BILIRUBIN 0.5 mg/dL (0.2-1.0); TOTAL PROTEIN 8.3 g/dL (6.4-8.2)
[2021-07-17] MEDS ORDERED: POTASSIUM CHLORIDE 10 MEQ TABLET.ER. PO ONE (01:15)
[2021-07-17] MEDS ORDERED: ACETAMINOPHEN 325 MG TABLET. PO PRN (01:30)
[2021-07-17] MEDS ORDERED: MORPHINE SULFATE 2 MG/ML INJ. IVP PRN ×2 (01:30→09:00)
[2021-07-17] MEDS ORDERED: ONDANSETRON PF 4 MG/2 ML VIAL. IVP PRN (01:30)
--- NOTE | 2021-07-17 02:41 | RAD ---
INDICATION: Reason: left groin swelling and tender / Spl. Instructions: / History: COMPARISON: None. TECHNIQUE: Grayscale, color and doppler ultrasound images were obtained of the left lower extremity v enous vasculature. LEFT: No thrombus identified in the common femoral vein, femoral vein, popliteal vein or visualized calf ve ins. 46 x 29 x 32 mm heterogenous hypoechoic structure within the left medial proximal thigh at the area o f interest was some internal vascularity within it. Enlarged lymph node near this site measuring 24 x 17 mm. IMPRESSION: * No thrombus identified in deep venous system of the left lower extremity. * Within the left groin there is a heterogenous hypoechoic structure identified with some internal v ascularity within a portion of it. Given the internal vascularity one possible cause would include a hematoma at this site with a vessel coursing through portion of this structure. Would also correlate as to whether the patient has had any recent procedures to this region to exclude causes such as a la rgely thrombosed pseudoaneurysm given that there is some vascular flow seen in a part of it. Other co mplex fluid collection such as infectious etiology also in differential. There is an adjacent enlarge d lymph node. Electronically signed by: Candelario Gong MD (07/17/2021 2:38 AM) [id number]
[2021-07-17] MEDS: IV NORMAL SALINE 1000ML BAG 1,000 ML IV SCH ×2 (03:43→14:32)
[2021-07-17] MEDS: VANCOMYCIN PER PHARMACY MC PRN ×2 (07:09→07:22)
--- NOTE | 2021-07-17 07:21 | NUR ---
Pharmacy Vancomycin Dosing Note S:Consulted to monitor and dose vancomycin started 07/17/21. O:KIMBER SUAZO is a 36 year old M with Cellulitis . Height: 5 feet, 10 inches Weight: 78.1 kg [place] Body Weight: 73.00 Adjusted Body Weight: 75.04 Dosing Weight: Actual Other Antibiotics: Cefazolin 1gm IVP q8hrs LABS: Last BUN: 8 Last Creatinine: 1.0 Creatinine Clearance: 104 mL/min Last WBC: 21.4 Last Procalcitonin: Tmax (past 24 hours): 99.5 Microbiology: I/O: 1000/ Drug Levels: Last level: on at Last dose given 07/17/21 at 0033 Vancomycin Dosing: Loading Dose: 1500 mg x1 Dosing Weight: Actual Target Trough: 10-20 A: Based on weight and est. CrCl: P: 1. Vancomycin 1500mg, followed by Vancomycin 1000 mg IV q8h. 2. Follow up Trough level on 07/17/21 at 2330 3. Pharmacy will continue to monitor, follow and adjust therapy as needed. Ronald Egan [facility], 07/17/21 0756
[2021-07-17] MEDS ORDERED: VANCOMYCIN 1 GM in IV NORMAL SALINE 250ML 250 ML IV SCH (08:00)
--- NOTE | 2021-07-17 08:36 | PDOC2 ---
RHIANNA LEVIN [facility] [employer] 07/17/21 0836: CONSULT Date of Consult Date of Consult DATE: 07/17/21 TIME: 08:27 Reason for Consult Reason for Consult: abscess Referring Physician Referring Physician: ER Identification/Chief Complaint Chief Complaint thigh pain Source Source: Chart review, Patient History of Present Illness Reason for Visit: Admitted with 5 days of worsening left thigh pain and swelling. Denies recent injury or procedure. Denies any drainage. Pain is improved since admission Past Medical History Psych: Anxiety Past Surgical History Past Surgical History: No pertinent history Family History Family History: Other (noncontributory to current illness ) Social History No ALCOHOL: rare Drugs: None Current Medications Current Medications Current Medications Vancomycin HCl 1.5 gm/Sodium Chloride 500 ml @ 250 mls/hr 1X ONCE IV Last administered on 07/17/21at 00:33; Start 07/17/21 at 00:30; Stop 07/17/21 at 02:29; Status DC Sodium Chloride 1,000 ml @ 1,000 mls/hr 1X ONCE IV ; Start 07/17/21 at 00:15; Stop 07/17/21 at 01:14; Status DC Potassium Chloride (Klor-Con) 40 meq 1X ONCE PO Last administered on 07/17/21at 02:24; Start 07/17/21 at 01:15; Stop 07/17/21 at 01:16; Status DC Ondansetron HCl (Zofran) 4 mg PRN Q8HRS PRN IVP NAUSEA/VOMITING; Start 07/17/21 at 01:30; Stop 07/18/21 at 01:29 Morphine Sulfate (Morphine Sulfate) 2 mg PRN Q2HR PRN IVP PAIN; Start 07/17/21 at 01:30; Stop 07/18/21 at 01:29 Sodium Chloride 1,000 ml @ 100 mls/hr Q10H IV Last administered on 07/17/21at 03:43; Start 07/17/21 at 01:30; Stop 07/18/21 at 01:29 Acetaminophen (Tylenol) 650 mg PRN Q4HRS PRN PO FEVER > 100.3'F; Start 07/17/21 at 01:30; Stop 07/18/21 at 01:29 Cefazolin Sodium/ Dextrose 50 ml @ 100 mls/hr 1X ONCE IV Last administered on 07/17/21at 02:23; Start 07/17/21 at 01:30; Stop 07/17/21 at 01:59; Status DC Cefazolin Sodium (Ancef) 1 gm Q8HRS IVP ; Start 07/17/21 at 14:00 Vancomycin HCl (Vanco Per Pharmacy) 1 each PRN DAILY PRN MC SEE COMMENTS Last administered on 07/17/21at 07:22; Start 07/17/21 at 06:45 Vancomycin HCl 1 gm/Sodium Chloride 250 ml @ 250 mls/hr Q8H IV Last administered on 07/17/21at 08:08; Start 07/17/21 at 08:00 Vancomycin HCl (Vancomycin Trough Level) 1 each 1X ONCE MC ; Start 07/17/21 at 22:30; Stop 07/17/21 at 22:31 Active Scripts Active Ativan (Lorazepam) 1 Mg Tablet 1 Mg PO BID PRN Tessalon Perle (Benzonatate) 100 Mg Capsule 1 Cap PO TID PRN Prednisone 50 Mg Tablet 1 Tab PO DAILY Proair Hfa (Albuterol Sulfate) 8.5 Gm Hfa.aer.ad 1 Puff INH PRN Q6HRS PRN Zithromax (Azithromycin) 250 Mg Tablet 1 Pkg PO UD Allergies Allergies: Coded Allergies: No Known Drug Allergies (Unverified , 09/02/17) ROS General: No: Chills, Other (fevers ) PSYCHOLOGICAL ROS: YES: Anxiety; No: Depression Eyes: No Blurry vision, No Loss of vision HEENT: No: Heacaches, Hearing change Hematological and Lymphatic: No: Bleeding Problems, Blood Clots Respiratory: No: Cough, SOB with excertion Gastrointestinal: No Nausea, No Vomiting Genitourinary: No Dysuria, No Hematuria Musculoskeletal: Yes Joint Pain, Yes Swelling In: (leg) Neurological: No Confusion, No Numbness/Tingling Skin: No Pruritus, No Rash Physical Exam General: Alert, Oriented X3, Cooperative HEENT: Atraumatic, PERRLA Lungs: Clear to auscultation, Normal air movement Heart: Regular rate, Normal S1, Normal S2 Abdomen: Soft, No tenderness Extremities: No clubbing, No cyanosis Skin: Other (left thigh with erythema, induration, tenderness to touch, central area with firmness and induration ) Neuro: Normal speech, Sensation intact Psych/Mental Status: Mental status NL, Mood NL MUSCULOSKELETAL: No deformity, No swelling Vitals VITALS Vital Signs Date Time Temp Pulse Resp B/P (MAP) Pulse Ox O2 Delivery O2 Flow Rate FiO2 07/17/21 03:03 Room Air 07/17/21 02:50 99.5 110 16 156/85 (108) 100 99.5 Labs Labs Laboratory Tests Test 07/17/21 00:28 07/17/21 00:41 White Blood Count 21.4 x10^3/uL (4.0-11.0) Red Blood Count 4.51 x10^6/uL (4.30-5.70) Hemoglobin 13.7 g/dL (13.0-17.5) Hematocrit 39.7 % (39.0-53.0) Mean Corpuscular Volume 88 fL (79-100) Mean Corpuscular Hemoglobin 30 pg (25-35) Mean Corpuscular Hemoglobin Concent 34 g/dL (31-37) Red Cell Distribution Width 13.1 % (11.5-14.5) Platelet Count 443 x10^3/uL (140-400) Neutrophils (%) (Auto) 86 % (31-73) Lymphocytes (%) (Auto) 5 % (24-48) Monocytes (%) (Auto) 8 % (0-9) Eosinophils (%) (Auto) 0 % (0-3) Basophils (%) (Auto) 1 % (0-3) Neutrophils # (Auto) 18.3 x10^3/uL (1.8-7.7) Lymphocytes # (Auto) 1.1 x10^3/uL (1.0-4.8) Monocytes # (Auto) 1.8 x10^3/uL (0.0-1.1) Eosinophils # (Auto) 0.0 x10^3/uL (0.0-0.7) Basophils # (Auto) 0.1 x10^3/uL (0.0-0.2) Sodium Level 133 mmol/L (136-145) Potassium Level 3.2 mmol/L (3.5-5.1) Chloride Level 97 mmol/L (98-107) Carbon Dioxide Level 26 mmol/L (21-32) Anion Gap 10 (6-14) Blood Urea Nitrogen 8 mg/dL (8-26) Creatinine 1.0 mg/dL (0.7-1.3) Estimated GFR (Cockcroft-Gault) 84.1 BUN/Creatinine Ratio 8 (6-20) Glucose Level 148 mg/dL (70-99) Calcium Level 9.0 mg/dL (8.5-10.1) Total Bilirubin 0.5 mg/dL (0.2-1.0) Aspartate Amino Transf (AST/SGOT) 73 U/L (15-37) Alanine Aminotransferase (ALT/SGPT) 119 U/L (16-63) Alkaline Phosphatase 127 U/L (46-116) Total Protein 8.3 g/dL (6.4-8.2) Albumin 3.3 g/dL (3.4-5.0) Albumin/Globulin Ratio 0.7 (1.0-1.7) SARS-CoV-2 Antigen (Rapid) Negative (NEGATIVE) Laboratory Tests Test 07/17/21 00:28 07/17/21 00:41 White Blood Count 21.4 x10^3/uL (4.0-11.0) Red Blood Count 4.51 x10^6/uL (4.30-5.70) Hemoglobin 13.7 g/dL (13.0-17.5) Hematocrit 39.7 % (39.0-53.0) Mean Corpuscular Volume 88 fL (79-100) Mean Corpuscular Hemoglobin 30 pg (25-35) Mean Corpuscular Hemoglobin Concent 34 g/dL (31-37) Red Cell Distribution Width 13.1 % (11.5-14.5) Platelet Count 443 x10^3/uL (140-400) Neutrophils (%) (Auto) 86 % (31-73) Lymphocytes (%) (Auto) 5 % (24-48) Monocytes (%) (Auto) 8 % (0-9) Eosinophils (%) (Auto) 0 % (0-3) Basophils (%) (Auto) 1 % (0-3) Neutrophils # (Auto) 18.3 x10^3/uL (1.8-7.7) Lymphocytes # (Auto) 1.1 x10^3/uL (1.0-4.8) Monocytes # (Auto) 1.8 x10^3/uL (0.0-1.1) Eosinophils # (Auto) 0.0 x10^3/uL (0.0-0.7) Basophils # (Auto) 0.1 x10^3/uL (0.0-0.2) Sodium Level 133 mmol/L (136-145) Potassium Level 3.2 mmol/L (3.5-5.1) Chloride Level 97 mmol/L (98-107) Carbon Dioxide Level 26 mmol/L (21-32) Anion Gap 10 (6-14) Blood Urea Nitrogen 8 mg/dL (8-26) Creatinine 1.0 mg/dL (0.7-1.3) Estimated GFR (Cockcroft-Gault) 84.1 BUN/Creatinine Ratio 8 (6-20) Glucose Level 148 mg/dL (70-99) Calcium Level 9.0 mg/dL (8.5-10.1) Total Bilirubin 0.5 mg/dL (0.2-1.0) Aspartate Amino Transf (AST/SGOT) 73 U/L (15-37) Alanine Aminotransferase (ALT/SGPT) 119 U/L (16-63) Alkaline Phosphatase 127 U/L (46-116) Total Protein 8.3 g/dL (6.4-8.2) Albumin 3.3 g/dL (3.4-5.0) Albumin/Globulin Ratio 0.7 (1.0-1.7) SARS-CoV-2 Antigen (Rapid) Negative (NEGATIVE) Assessment/Plan Assessment/Plan Left thigh abscess US reviewed will tentatively plan for OR this AM CARMENCITA GUERRA MD 07/17/21 0917: CONSULT Assessment/Plan Assessment/Plan Patient seen and examined by me. Complains of pain left upper thigh. Left upper thigh shows large area of erythema tender to palpation. Ultrasound showing complex fluid collection. Plan for incision and drainage. RHIANNA LEVIN APRN July 17, 2021 08:36 CARMENCITA GUERRA MD July 17, 2021 09:17
[2021-07-17] MEDS ORDERED: PROCHLORPERAZINE 10 MG/2 ML VIAL. IVP PRN (09:00)
[2021-07-17] MEDS ORDERED: fentaNYL PF VIAL 100 MCG/2 ML VIAL IVP PRN ×2 (09:00)
[2021-07-17] MEDS ORDERED: IV RINGERS,LACTATED 1000ML 1,000 ML IV SCH (09:00)
[2021-07-17] MEDS ORDERED: HYDROmorphone 2 MG/ML INJ. IVP PRN (09:00)
[2021-07-17] MEDS ORDERED: BUPIVACAINE-EPI 0.25%-1:200000 MPF 30 ML VIAL. ONE (09:06)
[2021-07-17] MEDS ORDERED: fentaNYL PF VIAL 100 MCG/2 ML VIAL ONE (09:18)
[2021-07-17] MEDS ORDERED: ONDANSETRON PF 4 MG/2 ML VIAL. ONE (09:18)
[2021-07-17] MEDS ORDERED: MIDAZOLAM HCL/PF 2 MG/2 ML VIAL. ONE (09:18)
[2021-07-17] MEDS ORDERED: LIDOCAINE 2% PF 5 ML VIAL. ONE (09:18)
[2021-07-17] MEDS ORDERED: DEXAMETHASONE SOD PHOS 4 MG/ML VIAL ONE (09:18)
[2021-07-17] MEDS ORDERED: SEVOFLURANE 61 TO 120 MINUTES. IH ONE (09:18)
[2021-07-17] MEDS ORDERED: PROPOFOL 10 MG/ML (20ML) VIAL. IV ONE (09:18)
--- NOTE | 2021-07-17 09:54 | PDOC4 ---
Operative Note Operative Note Date: July 17, 2021 at 9:52 AM Preoperative diagnosis: Left thigh abscess Postoperative diagnosis: Same Procedure: Incision and drainage of left thigh abscess Surgeon: Gabino Specimen: Culture Dictation: Patient is 36-year-old male was mated to the hospital with a large mass on his upper left thigh and erythema consistent with an abscess. Ultrasound showed complex fluid collection. Procedure of incision and drainage was explained to the patient detail risk benefits were also discussed including bleeding infection alternatives this procedure also discussed with the patient who seemed to understand and gave a verbal written consent had procedure performed. Patient was taken to the operating room placed in the supine position general anesthesia was initiated once patient was sleeping intubated his left thigh was prepped and draped usual sterile fashion using ChloraPrep. An area over the mass was injected with quarter percent Marcaine with epinephrin e incision was made 11 blade scalpel is carried down through the subcutaneous tissues using blunt dissection with surgeons finger into a abscess cavity copious amounts purulent material were expressed this was cultured. The wound was then irrigated with copious amounts normal saline and suctioned dry the wound was then packed with inch iodoform Nu Gauze dressed with 4 x 4's and Me dipore tape. Patient was awakened extubated operating room taken to recovery in stable condition all sponge instrument needle counts listed as correct estimated blood loss 10 mL CARMENCITA GUERRA MD July 17, 2021 09:54
[2021-07-17] MEDS ORDERED: oxyCODONE/APAP 5/325 1 TAB TABLET PO PRN (10:00)
--- NOTE | 2021-07-17 10:23 | NUR ---
contact numbers given by patient-Shireen and Francesco . Tried to get in touch with contact but was unable to. Called [facility] pharmacy to get a list of patients medications
[2021-07-17] MEDS ORDERED: ceFAZolin SODIUM IV Push 1 GM VIAL. IVP SCH (14:00)
--- NOTE | 2021-07-17 14:17 | PDOC1 ---
History and Physical Date of Service: DOS: DATE: 07/17/21 TIME: 14:11 Chief Complaint: Chief Complain: Left thigh pain and swelling History of Present Illness: HPI: Patient is 36-year-old male presented to the ED overnight due to 3 to 5-day history of swelling and tenderness on his left thigh, almost in the groin area. Says the swelling came out of nowhere denies any sort of trauma or abrasions to the area. Over the past few days it has become much more painful. Imaging showed a complex fluid collection. Surgery consulted planning for irrigation debridement. Otherwise no major complaints from the patient. I saw him after surgery pain was well controlled. He is a bit reluctant to staying in the hospital more than just tonight. Past Medical/Surgical History: PMH/PSH: Anxiety Allergies: Allergies: Coded Allergies: No Known Drug Allergies (Unverified , 09/02/17) Family History: Family History: None known per patient Social History: Social History: Denies alcohol tobacco drug use Current Medications: Current Medications Current Medications Vancomycin HCl 1.5 gm/Sodium Chloride 500 ml @ 250 mls/hr 1X ONCE IV Last administered on 07/17/21at 00:33; Start 07/17/21 at 00:30; Stop 07/17/21 at 02:29; Status DC Sodium Chloride 1,000 ml @ 1,000 mls/hr 1X ONCE IV ; Start 07/17/21 at 00:15; Stop 07/17/21 at 01:14; Status DC Potassium Chloride (Klor-Con) 40 meq 1X ONCE PO Last administered on 07/17/21at 02:24; Start 07/17/21 at 01:15; Stop 07/17/21 at 01:16; Status DC Ondansetron HCl (Zofran) 4 mg PRN Q8HRS PRN IVP NAUSEA/VOMITING; Start 07/17/21 at 01:30; Stop 07/18/21 at 01:29 Morphine Sulfate (Morphine Sulfate) 2 mg PRN Q2HR PRN IVP PAIN; Start 07/17/21 at 01:30; Stop 07/18/21 at 01:29 Sodium Chloride 1,000 ml @ 100 mls/hr Q10H IV Last administered on 07/17/21at 03:43; Start 07/17/21 at 01:30; Stop 07/18/21 at 01:29 Acetaminophen (Tylenol) 650 mg PRN Q4HRS PRN PO FEVER > 100.3'F; Start 07/17/21 at 01:30; Stop 07/18/21 at 01:29 Cefazolin Sodium/ Dextrose 50 ml @ 100 mls/hr 1X ONCE IV Last administered on 07/17/21at 02:23; Start 07/17/21 at 01:30; Stop 07/17/21 at 14:08; Status DC Cefazolin Sodium (Ancef) 1 gm Q8HRS IVP ; Start 07/17/21 at 14:00 Vancomycin HCl (Vanco Per Pharmacy) 1 each PRN DAILY PRN MC SEE COMMENTS Last administered on 07/17/21at 07:22; Start 07/17/21 at 06:45 Vancomycin HCl 1 gm/Sodium Chloride 250 ml @ 250 mls/hr Q8H IV Last administe red on 07/17/21at 08:08; Start 07/17/21 at 08:00; Stop 07/17/21 at 14:08; Status DC Vancomycin HCl (Vancomycin Trough Level) 1 each 1X ONCE MC ; Start 07/17/21 at 23:30; Stop 07/17/21 at 23:31 Fentanyl Citrate (Fentanyl 2ml Vial) 25 mcg PRN Q5MIN PRN IVP MILD PAIN 1-3; Start 07/17/21 at 09:00; Stop 07/17/21 at 20:00 Fentanyl Citrate (Fentanyl 2ml Vial) 50 mcg PRN Q5MIN PRN IVP MODERATE PAIN 4- 6; Start 07/17/21 at 09:00; Stop 07/17/21 at 20:00 Morphine Sulfate (Morphine Sulfate) 1 mg PRN Q10MIN PRN IVP SEVERE PAIN 7-10; Start 07/17/21 at 09:00; Stop 07/17/21 at 20:00 Ringer's Solution 1,000 ml @ 30 mls/hr Q24H IV ; Start 07/17/21 at 09:00; Stop 07/17/21 at 20:59 Hydromorphone HCl (Dilaudid) 0.5 mg PRN Q10MIN PRN IVP SEVERE PAIN 7-10, 2nd CHOICE; Start 07/17/21 at 09:00; Stop 07/17/21 at 20:00 Prochlorperazine Edisylate (Compazine) 5 mg PACU PRN PRN IVP NAUSEA, MRX1; Start 07/17/21 at 09:00; Stop 07/17/21 at 20:00 Bupivacaine HCl/ Epinephrine Bitart (Sensorcaine-Epi 0.25%-1:[id number] Mpf) 30 ml STK-MED ONCE .ROUTE Last administered on 07/17/21at 09:45; Start 07/17/21 at 09:06; Stop 07/17/21 at 09:06; Status DC Propofol (Diprivan) 200 mg STK-MED ONCE IV ; Start 07/17/21 at 09:18; Stop 07/17/21 at 09:18; Status DC Dexamethasone Sodium Phosphate (Decadron) 4 mg STK-MED ONCE .ROUTE ; Start 07/17/21 at 09:18; Stop 07/17/21 at 09:18; Status DC Lidocaine HCl (Lidocaine Pf 2% Vial) 5 ml STK-MED ONCE .ROUTE ; Start 07/17/21 at 09:18; Stop 07/17/21 at 09:18; Status DC Ondansetron HCl (Zofran) 4 mg STK-MED ONCE .ROUTE ; Start 07/17/21 at 09:18; Stop 07/17/21 at 09:18; Status DC Sevoflurane (Ultane) 60 ml STK-MED ONCE IH ; Start 07/17/21 at 09:18; Stop 07/17/21 at 09:18; Status DC Fentanyl Citrate (Fentanyl 2ml Vial) 100 mcg STK-MED ONCE .ROUTE ; Start 07/17/21 at 09:18; Stop 07/17/21 at 09:18; Status DC Midazolam HCl (Versed) 2 mg STK-MED ONCE .ROUTE ; Start 07/17/21 at 09:18; Stop 07/17/21 at 09:18; Status DC Oxycodone/ Acetaminophen (Percocet 5/325) 1 tab PRN Q4HRS PRN PO PAIN; Start 07/17/21 at 10:00 Oxycodone/ Acetaminophen (Percocet 5/325) 2 tab PRN Q4HRS PRN PO PAIN; Start 07/17/21 at 10:00 Lactobacillus Rhamnosus (Culturelle) 1 cap BID PO ; Start 07/17/21 at 21:00 Piperacillin Sod/ Tazobactam Sod 3.375 gm/Sodium Chloride 50 ml @ 100 mls/hr Q6HRS IV ; Start 07/17/21 at 18:00; Status UNV Active Scripts Active Ativan (Lorazepam) 1 Mg Tablet 1 Mg PO BID PRN Tessalon Perle (Benzonatate) 100 Mg Capsule 1 Cap PO TID PRN Prednisone 50 Mg Tablet 1 Tab PO DAILY Proair Hfa (Albuterol Sulfate) 8.5 Gm Hfa.aer.ad 1 Puff INH PRN Q6HRS PRN Zithromax (Azithromycin) 250 Mg Tablet 1 Pkg PO UD ROS: Review of Systems Review of System Unless noted in HPI 14 point review systems is negative Physical Exam: Vital Signs: Vital Signs Date Time Temp Pulse Resp B/P (MAP) Pulse Ox O2 Delivery O2 Flow Rate FiO2 07/17/21 11:15 81 121/74 (90) 07/17/21 10:55 97.6 16 99 Room Air 97.6 07/17/21 10:15 10.0 Physcial Exam: GEN: No apparent distress. Alert and oriented HEENT: Normal cephalic, atraumatic, external auditory canals are patent EYES: Extraocular muscles are intact, pupil are equally round and reactive to light and accommodation MUSCULOSKELETAL: Well developed , well nourished, good range of motion ENDOCRINE: No thyromegaly was palpated LYMPHATICS: No cervical chain or axillary nodes were noted HEMATOPOIETIC: No bruising NECK: Supple, no JVD, no thyromegaly was noted LUNGS: Clear to auscultation in all lung boo without rhonchi or wheezing HEART: RRR, S!, S2 present. Peripheral pulses intact, no obvious murmurs noted ABDOMEN: Soft, nontender. Positive bowel sounds, no organomegaly, normal bowel sounds EXTREMITIES: Left thigh with surgical dressing in place. Mildly tender over the dressing. NEUROLOGIC: Normal speech and tone. A&O x 3, moves all extremities, no obvious focal deficits PSYCHIATRIC: Normal affect, normal mood. Stable SKIN: No ulcerations or rashes, good skin turgor, no jaundice VASCULAR: Good capillary refill, neurovascular bundle appears to be intact Labs: Labs: Laboratory Tests Test 07/17/21 00:28 07/17/21 00:41 White Blood Count 21.4 x10^3/uL (4.0-11.0) Red Blood Count 4.51 x10^6/uL (4.30-5.70) Hemoglobin 13.7 g/dL (13.0-17.5) Hematocrit 39.7 % (39.0-53.0) Mean Corpuscular Volume 88 fL (79-100) Mean Corpuscular Hemoglobin 30 pg (25-35) Mean Corpuscular Hemoglobin Concent 34 g/dL (31-37) Red Cell Distribution Width 13.1 % (11.5-14.5) Platelet Count 443 x10^3/uL (140-400) Neutrophils (%) (Auto) 86 % (31-73) Lymphocytes (%) (Auto) 5 % (24-48) Monocytes (%) (Auto) 8 % (0-9) Eosinophils (%) (Auto) 0 % (0-3) Basophils (%) (Auto) 1 % (0-3) Neutrophils # (Auto) 18.3 x10^3/uL (1.8-7.7) Lymphocytes # (Auto) 1.1 x10^3/uL (1.0-4.8) Monocytes # (Auto) 1.8 x10^3/uL (0.0-1.1) Eosinophils # (Auto) 0.0 x10^3/uL (0.0-0.7) Basophils # (Auto) 0.1 x10^3/uL (0.0-0.2) Sodium Level 133 mmol/L (136-145) Potassium Level 3.2 mmol/L (3.5-5.1) Chloride Level 97 mmol/L (98-107) Carbon Dioxide Level 26 mmol/L (21-32) Anion Gap 10 (6-14) Blood Urea Nitrogen 8 mg/dL (8-26) Creatinine 1.0 mg/dL (0.7-1.3) Estimated GFR (Cockcroft-Gault) 84.1 BUN/Creatinine Ratio 8 (6-20) Glucose Level 148 mg/dL (70-99) Calcium Level 9.0 mg/dL (8.5-10.1) Total Bilirubin 0.5 mg/dL (0.2-1.0) Aspartate Amino Transf (AST/SGOT) 73 U/L (15-37) Alanine Aminotransferase (ALT/SGPT) 119 U/L (16-63) Alkaline Phosphatase 127 U/L (46-116) Total Protein 8.3 g/dL (6.4-8.2) Albumin 3.3 g/dL (3.4-5.0) Albumin/Globulin Ratio 0.7 (1.0-1.7) SARS-CoV-2 Antigen (Rapid) Negative (NEGATIVE) Laboratory Tests Test 07/17/21 00:28 07/17/21 00:41 White Blood Count 21.4 x10^3/uL (4.0-11.0) Red Blood Count 4.51 x10^6/uL (4.30-5.70) Hemoglobin 13.7 g/dL (13.0-17.5) Hematocrit 39.7 % (39.0-53.0) Mean Corpuscular Volume 88 fL (79-100) Mean Corpuscular Hemoglobin 30 pg (25-35) Mean Corpuscular Hemoglobin Concent 34 g/dL (31-37) Red Cell Distribution Width 13.1 % (11.5-14.5) Platelet Count 443 x10^3/uL (140-400) Neutrophils (%) (Auto) 86 % (31-73) Lymphocytes (%) (Auto) 5 % (24-48) Monocytes (%) (Auto) 8 % (0-9) Eosinophils (%) (Auto) 0 % (0-3) Basophils (%) (Auto) 1 % (0-3) Neutrophils # (Auto) 18.3 x10^3/uL (1.8-7.7) Lymphocytes # (Auto) 1.1 x10^3/uL (1.0-4.8) Monocytes # (Auto) 1.8 x10^3/uL (0.0-1.1) Eosinophils # (Auto) 0.0 x10^3/uL (0.0-0.7) Basophils # (Auto) 0.1 x10^3/uL (0.0-0.2) Sodium Level 133 mmol/L (136-145) Potassium Level 3.2 mmol/L (3.5-5.1) Chloride Level 97 mmol/L (98-107) Carbon Dioxide Level 26 mmol/L (21-32) Anion Gap 10 (6-14) Blood Urea Nitrogen 8 mg/dL (8-26) Creatinine 1.0 mg/dL (0.7-1.3) Estimated GFR (Cockcroft-Gault) 84.1 BUN/Creatinine Ratio 8 (6-20) Glucose Level 148 mg/dL (70-99) Calcium Level 9.0 mg/dL (8.5-10.1) Total Bilirubin 0.5 mg/dL (0.2-1.0) Aspartate Amino Transf (AST/SGOT) 73 U/L (15-37) Alanine Aminotransferase (ALT/SGPT) 119 U/L (16-63) Alkaline Phosphatase 127 U/L (46-116) Total Protein 8.3 g/dL (6.4-8.2) Albumin 3.3 g/dL (3.4-5.0) Albumin/Globulin Ratio 0.7 (1.0-1.7) SARS-CoV-2 Antigen (Rapid) Negative (NEGATIVE) Assessment/Plan Assessment/Plan Left lower status post I&D. History anxiety. -Presented with erythema painful swelling in left groin. Imaging consistent with abscess -Surgery consulted. Status post I&D -IV antibiotics. Received Vanco Zosyn continue for now. Infectious disease consultation. -Up out of bed as tolerated -As needed Ativan for anxiety -Advance diet as tolerated after surgery -Culture results pending Justifications for Admission Other Justification DAIANA WARNER MD July 17, 2021 14:17
--- NOTE | 2021-07-17 14:55 | CONS ---
DATE OF CONSULTATION: 07/17/2021 REFERRING PHYSICIAN: Magnus Banks MD REASON FOR CONSULTATION: Antibiotic management. HISTORY OF PRESENT ILLNESS: A 36-year-old male who presented to the ED on 07/17/2021 with complaints of left thigh swelling, which started about 4 days prior to admission. Denies any history of injury. No fever. He has some nausea. No diarrhea, no abdominal pain, no symptoms. Over the last 2 days, it became more painful. The patient denies any history of diabetes. Denies any shortness of breath or cough. Denies being on any antibiotics prior to admission. PAST MEDICAL HISTORY: No diabetes. Past medical history of anxiety, hypertension. ALLERGIES: No known drug allergies. SOCIAL HISTORY: Nonsmoker, no alcohol, no drugs. Has dogs. CURRENT MEDICATIONS: IV vancomycin and Ancef. PHYSICAL EXAMINATION: VITAL SIGNS: Temperature 97.9, T-max 101, pulse 81, respiratory rate 16, blood pressure 121/74, oxygen saturation 99% on room air. GENERAL: Alert, oriented x 3 male, lying in bed comfortably, in no acute distress. HEENT: Normocephalic, atraumatic. Anicteric. No thrush. Oral mucosa moist. Poor dentition. NECK: Supple, no JVD. LUNGS: Clear. HEART: S1, S2. No murmurs. ABDOMEN: Soft, nontender, nondistended. Bowel sounds present. EXTREMITIES: Left thigh postoperative dressing in place, indurated. No cyanosis, no clubbing. DERMATOLOGIC: Warm, dry, no generalized rash except for above. NEUROLOGIC: Alert, oriented x 3, grossly nonfocal. PSYCHIATRIC: Calm and cooperative. LINES: PIV clean. LABORATORY DATA: WBC 21.4, hemoglobin 13.7, hematocrit 39.7, platelets 443. Sodium 133, potassium 3.2, chloride 97, bicarbonate 26, BUN 8, creatinine 1.0, glucose 148. AST 73, ALT 193, alk phos 197, total protein 8.3, albumin 3.3. SARS-COVID rapid negative. IMAGING DATA: Lower extremity ultrasound shows hypoechoic heterogenous structures identified with some internal vascularity within the portion of it, adjacent enlarged lymph nodes. IMPRESSION: 1. Left thigh abscess, status post incision and drainage on 07/17/2021. 2. Leukocytosis. 3. Fever. 4. Left lower extremity pain. 5. Abnormal LFTs. RECOMMENDATIONS: 1. Continue vancomycin. 2. Discontinue Ancef and start Zosyn. 3. Monitor renal functions closely. 4. Pharmacy to assist with vancomycin dosing and adjustment. 5. Follow up intraoperative cultures. 6. Continue local wound care as directed. 7. Continue supportive care. Thank you for allowing me to participate in this patient's care. If you have any questions, do not hesitate to contact me. Discussed with nursing staff. KETTY/IFRAH/YOAN DR: Ron TID: [id number]
[2021-07-17 15:05] LABS: BASO % 0 % (0-3); EOS % 0 % (0-3); HEMATOCRIT 38.7 % (39.0-53.0); HEMOGLOBIN 13.2 g/dL (13.0-17.5); LYMPH # 0.3 x10^3/uL (1.0-4.8); LYMPH % 2 % (24-48); MEAN CORPUSCULAR HEMOGLOBIN 31 pg (25-35); MEAN CORPUSCULAR HGB CONC 34 g/dL (31-37); MEAN CORPUSCULAR VOLUME 90 fL (79-100); MONO # 0.4 x10^3/uL (0.0-1.1); MONO % 2 % (0-9); NEUT # 17.3 x10^3/uL (1.8-7.7); NEUT % 96 % (31-73); PLATELET COUNT 390 x10^3/uL (140-400); RED BLOOD COUNT 4.32 x10^6/uL (4.30-5.70); RED CELL DISTRIBUTION WIDTH 13.1 % (11.5-14.5); WHITE BLOOD COUNT 18.1 x10^3/uL (4.0-11.0)
[2021-07-17 15:52] LABS: ALBUMIN 2.8 g/dL (3.4-5.0); ALBUMIN/GLOBULIN RATIO 0.6 (1.0-1.7); CALCIUM 8.9 mg/dL (8.5-10.1); CREATININE 0.8 mg/dL (0.7-1.3); GFR 108.8; POTASSIUM 4.2 mmol/L (3.5-5.1); TOTAL BILIRUBIN 0.4 mg/dL (0.2-1.0); TOTAL PROTEIN 7.6 g/dL (6.4-8.2)
[2021-07-17] MEDS: PIPERACILLIN/TAZOBACTAM 3.375 GM in IV NORMAL SALINE 50ML 50 ML IV SCH (17:31)
[2021-07-17 17:36] LABS: % BANDS 13 % (0-9); % BASOS 1 % (0-3); % LYMPHS 3 % (24-48); % SEGS 83 % (35-66)
[2021-07-17 17:37] LABS: PLT ESTIMATE ADEQUATE (ADEQUATE)
[2021-07-17] MEDS: LACTOBACILLUS RHAMNOSUS GG 1 CAPSULE. PO SCH (21:28)
[2021-07-18] MEDS: PIPERACILLIN/TAZOBACTAM 3.375 GM in IV NORMAL SALINE 50ML 50 ML IV SCH ×4 (00:01→17:14)
[2021-07-18] MEDS: IV NORMAL SALINE 1000ML BAG 1,000 ML IV SCH (00:05)
[2021-07-18 03:26] VITALS: BP 120/72
[2021-07-18 05:35] LABS: BASO % 0 % (0-3); EOS % 0 % (0-3); HEMATOCRIT 40.2 % (39.0-53.0); LYMPH # 1.2 x10^3/uL (1.0-4.8); LYMPH % 7 % (24-48); MEAN CORPUSCULAR HEMOGLOBIN 29 pg (25-35); MEAN CORPUSCULAR HGB CONC 32 g/dL (31-37); MEAN CORPUSCULAR VOLUME 90 fL (79-100); MONO # 0.9 x10^3/uL (0.0-1.1); MONO % 5 % (0-9); NEUT # 14.9 x10^3/uL (1.8-7.7); NEUT % 88 % (31-73); PLATELET COUNT 402 x10^3/uL (140-400); RED BLOOD COUNT 4.47 x10^6/uL (4.30-5.70); RED CELL DISTRIBUTION WIDTH 12.9 % (11.5-14.5)
[2021-07-18 05:53] LABS: ALBUMIN 2.6 g/dL (3.4-5.0); ALBUMIN/GLOBULIN RATIO 0.5 (1.0-1.7); CREATININE 0.7 mg/dL (0.7-1.3); GFR 126.9; POTASSIUM 4.1 mmol/L (3.5-5.1); TOTAL BILIRUBIN 0.4 mg/dL (0.2-1.0); TOTAL PROTEIN 7.4 g/dL (6.4-8.2)
[2021-07-18 07:00] VITALS: BP 125/75
[2021-07-18] MEDS: LACTOBACILLUS RHAMNOSUS GG 1 CAPSULE. PO SCH ×2 (08:41→21:19)
[2021-07-18 11:00] VITALS: BP 116/76
--- NOTE | 2021-07-18 11:07 | PDOC ---
SURGICAL PROGRESS NOTE DATE: 07/18/21 TIME: 11:05 Subjective feels better currently no pain Vital Signs Vital Signs Date Time Temp Pulse Resp B/P (MAP) Pulse Ox O2 Delivery O2 Flow Rate FiO2 07/18/21 08:00 Room Air 10.0 07/18/21 07:00 98.1 70 17 125/75 (92) 100 98.1 I&O Intake and Output 07/18/21 07:00 Intake Total 730 ml Output Total 10 ml Balance 720 ml Intake Oral 480 ml IV Total 250 ml Output Estimated Blood Loss 10 ml # Voids 2 General: Alert, Oriented X3, Cooperative Skin: Other (less erythema, wound packed ) Labs Laboratory Tests Test 07/17/21 00:28 07/17/21 00:41 07/17/21 14:30 07/18/21 04:45 White Blood Count 21.4 x10^3/uL (4.0-11.0) 18.1 x10^3/uL (4.0-11.0) 17.0 x10^3/uL (4.0-11.0) Red Blood Count 4.51 x10^6/uL (4.30-5.70) 4.32 x10^6/uL (4.30-5.70) 4.47 x10^6/uL (4.30-5.70) Hemoglobin 13.7 g/dL (13.0-17.5) 13.2 g/dL (13.0-17.5) 13.0 g/dL (13.0-17.5) Hematocrit 39.7 % (39.0-53.0) 38.7 % (39.0-53.0) 40.2 % (39.0-53.0) Mean Corpuscular Volume 88 fL (79-100) 90 fL (79-100) 90 fL (79-100) Mean Corpuscular Hemoglobin 30 pg (25-35) 31 pg (25-35) 29 pg (25-35) Mean Corpuscular Hemoglobin Concent 34 g/dL (31-37) 34 g/dL (31-37) 32 g/dL (31-37) Red Cell Distribution Width 13.1 % (11.5-14.5) 13.1 % (11.5-14.5) 12.9 % (11.5-14.5) Platelet Count 443 x10^3/uL (140-400) 390 x10^3/uL (140-400) 402 x10^3/uL (140-400) Neutrophils (%) (Auto) 86 % (31-73) 96 % (31-73) 88 % (31-73) Lymphocytes (%) (Auto) 5 % (24-48) 2 % (24-48) 7 % (24-48) Monocytes (%) (Auto) 8 % (0-9) 2 % (0-9) 5 % (0-9) Eosinophils (%) (Auto) 0 % (0-3) 0 % (0-3) 0 % (0-3) Basophils (%) (Auto) 1 % (0-3) 0 % (0-3) 0 % (0-3) Neutrophils # (Auto) 18.3 x10^3/uL (1.8-7.7) 17.3 x10^3/uL (1.8-7.7) 14.9 x10^3/uL (1.8-7.7) Lymphocytes # (Auto) 1.1 x10^3/uL (1.0-4.8) 0.3 x10^3/uL (1.0-4.8) 1.2 x10^3/uL (1.0-4.8) Monocytes # (Auto) 1.8 x10^3/uL (0.0-1.1) 0.4 x10^3/uL (0.0-1.1) 0.9 x10^3/uL (0.0-1.1) Eosinophils # (Auto) 0.0 x10^3/uL (0.0-0.7) 0.0 x10^3/uL (0.0-0.7) 0.0 x10^3/uL (0.0-0.7) Basophils # (Auto) 0.1 x10^3/uL (0.0-0.2) 0.0 x10^3/uL (0.0-0.2) 0.0 x10^3/uL (0.0-0.2) Sodium Level 133 mmol/L (136-145) 139 mmol/L (136-145) 140 mmol/L (136-145) Potassium Level 3.2 mmol/L (3.5-5.1) 4.2 mmol/L (3.5-5.1) 4.1 mmol/L (3.5-5.1) Chloride Level 97 mmol/L (98-107) 104 mmol/L (98-107) 106 mmol/L (98-107) Carbon Dioxide Level 26 mmol/L (21-32) 28 mmol/L (21-32) 27 mmol/L (21-32) Anion Gap 10 (6-14) 7 (6-14) 7 (6-14) Blood Urea Nitrogen 8 mg/dL (8-26) 8 mg/dL (8-26) 8 mg/dL (8-26) Creatinine 1.0 mg/dL (0.7-1.3) 0.8 mg/dL (0.7-1.3) 0.7 mg/dL (0.7-1.3) Estimated GFR (Cockcroft-Gault) 84.1 108.8 126.9 BUN/Creatinine Ratio 8 (6-20) 10 (6-20) 11 (6-20) Glucose Level 148 mg/dL (70-99) 158 mg/dL (70-99) 96 mg/dL (70-99) Calcium Level 9.0 mg/dL (8.5-10.1) 8.9 mg/dL (8.5-10.1) 9.0 mg/dL (8.5-10.1) Total Bilirubin 0.5 mg/dL (0.2-1.0) 0.4 mg/dL (0.2-1.0) 0.4 mg/dL (0.2-1.0) Aspartate Amino Transf (AST/SGOT) 73 U/L (15-37) 107 U/L (15-37) 78 U/L (15-37) Alanine Aminotransferase (ALT/SGPT) 119 U/L (16-63) 152 U/L (16-63) 141 U/L (16-63) Alkaline Phosphatase 127 U/L (46-116) 126 U/L (46-116) 118 U/L (46-116) Total Protein 8.3 g/dL (6.4-8.2) 7.6 g/dL (6.4-8.2) 7.4 g/dL (6.4-8.2) Albumin 3.3 g/dL (3.4-5.0) 2.8 g/dL (3.4-5.0) 2.6 g/dL (3.4-5.0) Albumin/Globulin Ratio 0.7 (1.0-1.7) 0.6 (1.0-1.7) 0.5 (1.0-1.7) SARS-CoV-2 Antigen (Rapid) Negative (NEGATIVE) Segmented Neutrophils % 83 % (35-66) Band Neutrophils % 13 % (0-9) Lymphocytes % 3 % (24-48) Basophils % 1 % (0-3) Platelet Estimate Adequate (ADEQUATE) Laboratory Tests Test 07/17/21 14:30 07/18/21 04:45 White Blood Count 18.1 x10^3/uL (4.0-11.0) 17.0 x10^3/uL (4.0-11.0) Red Blood Count 4.32 x10^6/uL (4.30-5.70) 4.47 x10^6/uL (4.30-5.70) Hemoglobin 13.2 g/dL (13.0-17.5) 13.0 g/dL (13.0-17.5) Hematocrit 38.7 % (39.0-53.0) 40.2 % (39.0-53.0) Mean Corpuscular Volume 90 fL (79-100) 90 fL (79-100) Mean Corpuscular Hemoglobin 31 pg (25-35) 29 pg (25-35) Mean Corpuscular Hemoglobin Concent 34 g/dL (31-37) 32 g/dL (31-37) Red Cell Distribution Width 13.1 % (11.5-14.5) 12.9 % (11.5-14.5) Platelet Count 390 x10^3/uL (140-400) 402 x10^3/uL (140-400) Neutrophils (%) (Auto) 96 % (31-73) 88 % (31-73) Lymphocytes (%) (Auto) 2 % (24-48) 7 % (24-48) Monocytes (%) (Auto) 2 % (0-9) 5 % (0-9) Eosinophils (%) (Auto) 0 % (0-3) 0 % (0-3) Basophils (%) (Auto) 0 % (0-3) 0 % (0-3) Neutrophils # (Auto) 17.3 x10^3/uL (1.8-7.7) 14.9 x10^3/uL (1.8-7.7) Lymphocytes # (Auto) 0.3 x10^3/uL (1.0-4.8) 1.2 x10^3/uL (1.0-4.8) Monocytes # (Auto) 0.4 x10^3/uL (0.0-1.1) 0.9 x10^3/uL (0.0-1.1) Eosinophils # (Auto) 0.0 x10^3/uL (0.0-0.7) 0.0 x10^3/uL (0.0-0.7) Basophils # (Auto) 0.0 x10^3/uL (0.0-0.2) 0.0 x10^3/uL (0.0-0.2) Segmented Neutrophils % 83 % (35-66) Band Neutrophils % 13 % (0-9) Lymphocytes % 3 % (24-48) Basophils % 1 % (0-3) Platelet Estimate Adequate (ADEQUATE) Sodium Level 139 mmol/L (136-145) 140 mmol/L (136-145) Potassium Level 4.2 mmol/L (3.5-5.1) 4.1 mmol/L (3.5-5.1) Chloride Level 104 mmol/L (98-107) 106 mmol/L (98-107) Carbon Dioxide Level 28 mmol/L (21-32) 27 mmol/L (21-32) Anion Gap 7 (6-14) 7 (6-14) Blood Urea Nitrogen 8 mg/dL (8-26) 8 mg/dL (8-26) Creatinine 0.8 mg/dL (0.7-1.3) 0.7 mg/dL (0.7-1.3) Estimated GFR (Cockcroft-Gault) 108.8 126.9 BUN/Creatinine Ratio 10 (6-20) 11 (6-20) Glucose Level 158 mg/dL (70-99) 96 mg/dL (70-99) Calcium Level 8.9 mg/dL (8.5-10.1) 9.0 mg/dL (8.5-10.1) Total Bilirubin 0.4 mg/dL (0.2-1.0) 0.4 mg/dL (0.2-1.0) Aspartate Amino Transf (AST/SGOT) 107 U/L (15-37) 78 U/L (15-37) Alanine Aminotransferase (ALT/SGPT) 152 U/L (16-63) 141 U/L (16-63) Alkaline Phosphatase 126 U/L (46-116) 118 U/L (46-116) Total Protein 7.6 g/dL (6.4-8.2) 7.4 g/dL (6.4-8.2) Albumin 2.8 g/dL (3.4-5.0) 2.6 g/dL (3.4-5.0) Albumin/Globulin Ratio 0.6 (1.0-1.7) 0.5 (1.0-1.7) Assessment/Plan wound care,. abx can dc when medically ready Justicifation of Admission Dx: Justifications for Admission: Justification of Admission Dx: Yes Comments: RHIANNA Guaman [employer] OPERATOR July 18, 2021 11:07
--- NOTE | 2021-07-18 13:54 | PDOC ---
Infectious Disease Note Subjective: Subjective Patient feels better Left thigh pain has improved Denies F/N/V/D/Abdo pain,rash Vital Signs: Vital Signs Vital Signs Date Time Temp Pulse Resp B/P (MAP) Pulse Ox O2 Delivery O2 Flow Rate FiO2 07/18/21 11:00 97.5 77 18 116/76 (89) 100 Room Air 97.5 07/18/21 08:00 10.0 Physical Exam: PHYSICAL EXAM GENERAL: Alert, oriented x 3 male, lying in bed comfortably, in no acute distress. HEENT: Normocephalic, atraumatic. Anicteric. No thrush. Oral mucosa moist. Poor dentition. NECK: Supple, no JVD. LUNGS: Clear. HEART: S1, S2. No murmurs. ABDOMEN: Soft, nontender, nondistended. Bowel sounds present. EXTREMITIES: Left thigh postoperative dressing in place, indurated. No cyanosis, no clubbing. DERMATOLOGIC: Warm, dry, no generalized rash except for above. NEUROLOGIC: Alert, oriented x 3, grossly nonfocal. PSYCHIATRIC: Calm and cooperative. LINES: PIV clean. Medications: Inpatient Meds: Medications reviewed. Labs: Lab Laboratory Tests Test 07/17/21 14:30 07/18/21 04:45 White Blood Count 18.1 x10^3/uL (4.0-11.0) 17.0 x10^3/uL (4.0-11.0) Red Blood Count 4.32 x10^6/uL (4.30-5.70) 4.47 x10^6/uL (4.30-5.70) Hemoglobin 13.2 g/dL (13.0-17.5) 13.0 g/dL (13.0-17.5) Hematocrit 38.7 % (39.0-53.0) 40.2 % (39.0-53.0) Mean Corpuscular Volume 90 fL (79-100) 90 fL (79-100) Mean Corpuscular Hemoglobin 31 pg (25-35) 29 pg (25-35) Mean Corpuscular Hemoglobin Concent 34 g/dL (31-37) 32 g/dL (31-37) Red Cell Distribution Width 13.1 % (11.5-14.5) 12.9 % (11.5-14.5) Platelet Count 390 x10^3/uL (140-400) 402 x10^3/uL (140-400) Neutrophils (%) (Auto) 96 % (31-73) 88 % (31-73) Lymphocytes (%) (Auto) 2 % (24-48) 7 % (24-48) Monocytes (%) (Auto) 2 % (0-9) 5 % (0-9) Eosinophils (%) (Auto) 0 % (0-3) 0 % (0-3) Basophils (%) (Auto) 0 % (0-3) 0 % (0-3) Neutrophils # (Auto) 17.3 x10^3/uL (1.8-7.7) 14.9 x10^3/uL (1.8-7.7) Lymphocytes # (Auto) 0.3 x10^3/uL (1.0-4.8) 1.2 x10^3/uL (1.0-4.8) Monocytes # (Auto) 0.4 x10^3/uL (0.0-1.1) 0.9 x10^3/uL (0.0-1.1) Eosinophils # (Auto) 0.0 x10^3/uL (0.0-0.7) 0.0 x10^3/uL (0.0-0.7) Basophils # (Auto) 0.0 x10^3/uL (0.0-0.2) 0.0 x10^3/uL (0.0-0.2) Segmented Neutrophils % 83 % (35-66) Band Neutrophils % 13 % (0-9) Lymphocytes % 3 % (24-48) Basophils % 1 % (0-3) Platelet Estimate Adequate (ADEQUATE) Sodium Level 139 mmol/L (136-145) 140 mmol/L (136-145) Potassium Level 4.2 mmol/L (3.5-5.1) 4.1 mmol/L (3.5-5.1) Chloride Level 104 mmol/L (98-107) 106 mmol/L (98-107) Carbon Dioxide Level 28 mmol/L (21-32) 27 mmol/L (21-32) Anion Gap 7 (6-14) 7 (6-14) Blood Urea Nitrogen 8 mg/dL (8-26) 8 mg/dL (8-26) Creatinine 0.8 mg/dL (0.7-1.3) 0.7 mg/dL (0.7-1.3) Estimated GFR (Cockcroft-Gault) 108.8 126.9 BUN/Creatinine Ratio 10 (6-20) 11 (6-20) Glucose Level 158 mg/dL (70-99) 96 mg/dL (70-99) Calcium Level 8.9 mg/dL (8.5-10.1) 9.0 mg/dL (8.5-10.1) Total Bilirubin 0.4 mg/dL (0.2-1.0) 0.4 mg/dL (0.2-1.0) Aspartate Amino Transf (AST/SGOT) 107 U/L (15-37) 78 U/L (15-37) Alanine Aminotransferase (ALT/SGPT) 152 U/L (16-63) 141 U/L (16-63) Alkaline Phosphatase 126 U/L (46-116) 118 U/L (46-116) Total Protein 7.6 g/dL (6.4-8.2) 7.4 g/dL (6.4-8.2) Albumin 2.8 g/dL (3.4-5.0) 2.6 g/dL (3.4-5.0) Albumin/Globulin Ratio 0.6 (1.0-1.7) 0.5 (1.0-1.7) Objective: Assessment: 1. Left thigh abscess, status post incision and drainage on 07/17/2021. Cultures positive for group B strep 2. Leukocytosis. 3. Fever. 4. Left lower extremity pain. 5. Abnormal LFTs. Plan: Plan of Care DC vancomycin Continue Zosyn for now Local wound care as directed Follow-up labs and cultures Continue supportive care OWEN CATALAN MD July 18, 2021 13:53
[2021-07-18 15:00] VITALS: BP 119/74
[2021-07-18] MEDS: oxyCODONE/APAP 5/325 1 TAB TABLET PO PRN (15:25)
[2021-07-18 19:00] VITALS: BP 131/87
--- NOTE | 2021-07-18 21:06 | PDOC ---
[facility] PROGRESS NOTE Date of Service DOS: DATE: 07/18/21 TIME: 21:03 Chief Complaint Chief Complaint Left lower extremity abscess status post I&D. History anxiety. -Presented with erythema painful swelling in left groin. Imaging consistent with abscess -Surgery consulted. Status post I&D -IV antibiotics. Received Vanco Zosyn continue for now. Infectious disease consultation. --> 07/18 continue just Zosyn for now -Up out of bed as tolerated -As needed Ativan for anxiety -Regular diet -beta group A strep positive, sensitivities pending? History of Present Illness History of Present Illness 07/18 Patient evaluated examined at bedside. Resting in bed said surgical site feels okay. Asking about culture results informed her that we do have an organism but sensitivities are still pending. He is still little bit anxious and reluctant to staying in the hospital too long he said due to missing work. Informed him that if possible we will try to put him on an oral antibiotic once culture sensitivities are back and that our infection specialist are following as well. Discussed with bedside RN. ID and Surgery recommendations reviewed. Hopeful for discharge in next day or 2. Vitals/I&O Vitals/I&O: Vital Signs Date Time Temp Pulse Resp B/P (MAP) Pulse Ox O2 Delivery O2 Flow Rate FiO2 07/18/21 19:00 98.1 78 14 131/87 (102) 98 Room Air 98.1 07/18/21 15:55 10.0 I & O 07/17/21 07/17/21 07/18/21 15:00 23:00 07:00 Intake Total 250 ml 480 ml Output Total 10 ml Balance 240 ml 480 ml Physical Exam Physical Exam: GENERAL: Alert, oriented x 3 male, lying in bed comfortably, in no acute distress. HEENT: Normocephalic, atraumatic. Anicteric. No thrush. Oral mucosa moist. Poor dentition. NECK: Supple, no JVD. LUNGS: Clear. HEART: S1, S2. No murmurs. ABDOMEN: Soft, nontender, nondistended. Bowel sounds present. EXTREMITIES: Left thigh postoperative dressing in place, indurated. No cyanosis, no clubbing. DERMATOLOGIC: Warm, dry, no generalized rash except for above. NEUROLOGIC: Alert, oriented x 3, grossly nonfocal. PSYCHIATRIC: Calm and cooperative. LINES: PIV clean. General: Alert, Oriented X3, Cooperative Heart: Regular rate, Normal S1, Normal S2 Lungs: Clear Abdomen: Normal bowel sounds, Soft, No tenderness Extremities: No edema, Normal pulses Skin: Other (less erythema, wound packed ) Labs Labs: Laboratory Tests Test 07/18/21 04:45 White Blood Count 17.0 x10^3/uL (4.0-11.0) Red Blood Count 4.47 x10^6/uL (4.30-5.70) Hemoglobin 13.0 g/dL (13.0-17.5) Hematocrit 40.2 % (39.0-53.0) Mean Corpuscular Volume 90 fL (79-100) Mean Corpuscular Hemoglobin 29 pg (25-35) Mean Corpuscular Hemoglobin Concent 32 g/dL (31-37) Red Cell Distribution Width 12.9 % (11.5-14.5) Platelet Count 402 x10^3/uL (140-400) Neutrophils (%) (Auto) 88 % (31-73) Lymphocytes (%) (Auto) 7 % (24-48) Monocytes (%) (Auto) 5 % (0-9) Eosinophils (%) (Auto) 0 % (0-3) Basophils (%) (Auto) 0 % (0-3) Neutrophils # (Auto) 14.9 x10^3/uL (1.8-7.7) Lymphocytes # (Auto) 1.2 x10^3/uL (1.0-4.8) Monocytes # (Auto) 0.9 x10^3/uL (0.0-1.1) Eosinophils # (Auto) 0.0 x10^3/uL (0.0-0.7) Basophils # (Auto) 0.0 x10^3/uL (0.0-0.2) Sodium Level 140 mmol/L (136-145) Potassium Level 4.1 mmol/L (3.5-5.1) Chloride Level 106 mmol/L (98-107) Carbon Dioxide Level 27 mmol/L (21-32) Anion Gap 7 (6-14) Blood Urea Nitrogen 8 mg/dL (8-26) Creatinine 0.7 mg/dL (0.7-1.3) Estimated GFR (Cockcroft-Gault) 126.9 BUN/Creatinine Ratio 11 (6-20) Glucose Level 96 mg/dL (70-99) Calcium Level 9.0 mg/dL (8.5-10.1) Total Bilirubin 0.4 mg/dL (0.2-1.0) Aspartate Amino Transf (AST/SGOT) 78 U/L (15-37) Alanine Aminotransferase (ALT/SGPT) 141 U/L (16-63) Alkaline Phosphatase 118 U/L (46-116) Total Protein 7.4 g/dL (6.4-8.2) Albumin 2.6 g/dL (3.4-5.0) Albumin/Globulin Ratio 0.5 (1.0-1.7) Comment Review of Relevant I have reviewed the following items stella (where applicable) has been applied. Justifications for Admission Other Justification DAIANA WARNER MD July 18, 2021 21:06
[2021-07-18 23:13] VITALS: BP 121/84
[2021-07-19] MEDS: PIPERACILLIN/TAZOBACTAM 3.375 GM in IV NORMAL SALINE 50ML 50 ML IV SCH ×3 (00:08→12:22)
[2021-07-19 04:13] VITALS: BP 133/76
[2021-07-19 07:34] VITALS: BP 133/84
--- NOTE | 2021-07-19 07:52 | PDOC ---
[facility] [facility] PROGRESS NOTE Date of Service DOS: DATE: 07/19/21 TIME: 07:51 Chief Complaint Chief Complaint Left lower extremity abscess status post I&D. History anxiety. -Presented with erythema painful swelling in left groin. Imaging consistent with abscess -Surgery consulted. Status post I&D -IV antibiotics. Received Vanco Zosyn continue for now. Infectious disease consultation. --> 07/18 continue just Zosyn for now -Up out of bed as tolerated -As needed Ativan for anxiety -Regular diet -beta group A strep positive, sensitivities pending? History of Present Illness History of Present Illness 07/19/2021 Patient seen and examined Discussed with RN Chart reviewed His culture grew out group a strep Hope to discharge this afternoon if okay with infectious disease on p.o. Phill jonesin 07/18 Patient evaluated examined at bedside. Resting in bed said surgical site feels okay. Asking about culture results informed her that we do have an organism but sensitivities are still pending. He is still little bit anxious and reluctant to staying in the hospital too long he said due to missing work. Informed him that if possible we will try to put him on an oral antibiotic once culture sensitivities are back and that our infection specialist are following as well. Discussed with bedside RN. ID and Surgery recommendations reviewed. Hopeful for discharge in next day or 2. Vitals/I&O Vitals/I&O: Vital Signs Date Time Temp Pulse Resp B/P (MAP) Pulse Ox O2 Delivery O2 Flow Rate FiO2 07/19/21 07:34 97.6 78 20 133/84 (100) 98 Room Air 97.6 07/18/21 15:55 10.0 I & O 07/18/21 07/18/21 07/19/21 15:00 23:00 07:00 Intake Total 0 ml 200 ml 700 ml Balance 0 ml 200 ml 700 ml Physical Exam Physical Exam: GENERAL: Alert, oriented x 3 male, lying in bed comfortably, in no acute distress. HEENT: Normocephalic, atraumatic. Anicteric. No thrush. Oral mucosa moist. Poor dentition. NECK: Supple, no JVD. LUNGS: Clear. HEART: S1, S2. No murmurs. ABDOMEN: Soft, nontender, nondistended. Bowel sounds present. EXTREMITIES: Left thigh postoperative dressing in place, indurated. No cyanosis, no clubbing. DERMATOLOGIC: Warm, dry, no generalized rash except for above. NEUROLOGIC: Alert, oriented x 3, grossly nonfocal. PSYCHIATRIC: Calm and cooperative. LINES: PIV clean. General: Alert, Oriented X3, Cooperative Heart: Regular rate, Normal S1, Normal S2 Lungs: Clear Abdomen: Normal bowel sounds, Soft, No tenderness Extremities: No edema, Normal pulses Skin: Other (less erythema, wound packed ) Assessment and Plan Assessmemt and Plan 1. Left thigh abscess, status post incision and drainage on 07/17/2021. Cultures positive for group B strep 2. Leukocytosis. 3. Fever. 4. Left lower extremity pain. 5. Abnormal LFTs. Plan Discharge on p.o. Augmentin if okay with infectious disease Comment Review of Relevant I have reviewed the following items stella (where applicable) has been applied. Justifications for Admission Other Justification MARIYA MADISON III DO July 19, 2021 07:52
[2021-07-19] MEDS ORDERED: OXYC1TAB15 PO (07:53)
--- NOTE | 2021-07-19 07:54 | SNU/HH DC ---
DISCHARGE WITH HOME HEALTH DISCHARGE INFORMATION: Condition on Discharge: Stable CODE STATUS: Code Status: Full HOME HEALTH: Face to Face: I certify this patient is under my care and that I, or a nurse practitioner or physician's contact lens assistant working with me, had a face to face encounter that meets the physician face to face encounter requirements with this patient on []. Medical Complications: Other (Thigh abscess) Senior Living For: Assess & Educate Safety RN For Eval/Treatment: Yes Physical Therapy For: Evalulation/Treatment Occupational Therapy For: Evaluation/Treatment Home Health Aide For: Self-care PORTABLE IRRIGATION OPERATOR For: Community Resources Pt Meets Homebound Status: Poor coordination w/ amb. POST DISCHARGE ORDERS: DIET AFTER DISCHARGE: Cardiac CERTIFICATION STATEMENT: Certification Statement: Certification Statement: Based on the above finding, I certify that this patient is confined to the home and needs intermittent detention care, physical therapy and/or speech therapy, or continues to need occupational therapy.~ This patient is under my care, and I have initiated the establishment of the plan of care.~ This patient will be followed by myself or a community physician who will periodically review the plan of care. Home Meds Active Scripts Oxycodone/Apap 5-325 (PERCOCET 5-325 MG TABLET ) 1 Each Tablet, 1 TAB PO PRN Q4HRS PRN for PAIN for 7 Days, #14 TAB Prov:MARIYA MADISON III DO 07/19/21 Lorazepam (ATIVAN) 1 Mg Tablet, 1 MG PO BID PRN for ANXIETY / AGITATION, #20 TAB Prov:ITALIA MERCEDES MD 09/11/18 Benzonatate (TESSALON PERLE) 100 Mg Capsule, 1 CAP PO TID PRN for COUGH, #21 CAP Prov:ASHU TIRADO DOCUMENT MANAGEMENT CONSULTANT 07/27/18 Prednisone (PREDNISONE) 50 Mg Tablet, 1 TAB PO DAILY for bronchitis, #5 TAB Prov:RACHEL URIBE APRN 05/17/18 Albuterol Sulfate (Proair Hfa) 8.5 Gm Hfa.aer.ad, 1 PUFF INH PRN Q6HRS PRN for SHORTNESS OF BREATH, #1 INHALER Prov:RACHEL URIBE APRN 05/17/18 Azithromycin (ZITHROMAX) 250 Mg Tablet, 1 PKG PO UD for bronchitis, #1 PKG Prov:RACHEL URIBE APRN 05/17/18 MARIYA MADISON III DO July 19, 2021 07:54
[2021-07-19] MEDS: LACTOBACILLUS RHAMNOSUS GG 1 CAPSULE. PO SCH (08:26)
[2021-07-19 10:46] VITALS: BP 122/82
--- NOTE | 2021-07-19 14:47 | PDOC ---
Infectious Disease Note Subjective: Subjective Patient feels better wants to go home Left thigh pain has improved Denies F/N/V/D/Abdo pain,rash Vital Signs: Vital Signs Vital Signs Date Time Temp Pulse Resp B/P (MAP) Pulse Ox O2 Delivery O2 Flow Rate FiO2 07/19/21 10:46 98.1 81 20 122/82 (95) 99 Room Air 98.1 07/18/21 15:55 10.0 Physical Exam: PHYSICAL EXAM GENERAL: Alert, oriented x 3 male, lying in bed comfortably, in no acute distress. HEENT: Normocephalic, atraumatic. Anicteric. No thrush. Oral mucosa moist. Poor dentition. NECK: Supple, no JVD. LUNGS: Clear. HEART: S1, S2. No murmurs. ABDOMEN: Soft, nontender, nondistended. Bowel sounds present. EXTREMITIES: Left thigh postoperative dressing in place, indurated. No cyanosis, no clubbing. DERMATOLOGIC: Warm, dry, no generalized rash except for above. NEUROLOGIC: Alert, oriented x 3, grossly nonfocal. PSYCHIATRIC: Calm and cooperative. LINES: PIV clean. Medications: Inpatient Meds: Medications reviewed. Objective: Assessment: 1. Left thigh abscess, status post incision and drainage on 07/17/2021. Cultures positive for group B strep 2. Leukocytosis. 3. Fever. 4. Left lower extremity pain. 5. Abnormal LFTs. Plan: Plan of Care ok to [facility] home on augmenting Local wound care as directed d/w OWEN Kc MD July 19, 2021 14:47
[2021-07-19 15:15] VITALS: BP 124/85
[2021-07-19] MEDS: oxyCODONE/APAP 5/325 1 TAB TABLET PO PRN (15:32)
--- NOTE | 2021-07-19 17:05 | NUR ---
Pt DC home in stable condition with belongings accompanied by family. DC instructions and medications reviewed with patient. SL removed, cath intact. Wound care directions and follow up given to patient. Patient denies having questions.
--- NOTE | 2021-07-20 17:26 | DS ---
DATE OF DISCHARGE: 07/19/2021 ADMISSION DIAGNOSIS: Left thigh abscess. DISCHARGE DIAGNOSIS: Postoperative day #2 left thigh abscess, abscess incision and drainage. HOSPITAL COURSE: The patient is a pleasant middle-aged male who presented with a left thigh abscess. He was admitted. We gave him IV antibiotics. We consulted ID and General Surgery. He was taken for incision and drainage. He grew Strep B on his cultures. Yesterday, I saw him and examined him. He is doing well and discharged on Augmentin p.o. DISPOSITION: Home. ACTIVITY: As tolerated. DIET: Low sodium. MEDICATIONS: Augmentin 875 mg b.i.d., p.r.n. oxycodone, albuterol, p.r.n. Ativan. We will continue his home prednisone. DONOVAN/RIOS/YOAN DR: DONOVAN/bhavana TID: [id number]
== END 2021-07-19 17:00 | disposition home or self-care (01) | DRG 603 ==
LOC: ER 23:08 → 4 NORTH 07-17 01:16
PROVIDERS: ADMIT Internal Medicine; ATTEND Internal Medicine
PROC: 0J9M0ZZ Drainage of Left Upper Leg Subcutaneous Tissue and Fascia, Open Approach (ICD-10-PCS; principal; 2021-07-17 09:30)
DX: L02.416 Cutaneous abscess of left lower limb (principal); F41.9 Anxiety disorder, unspecified; I10 Essential (primary) hypertension; Z20.822 Contact with and (suspected) exposure to COVID-19; L03.116 Cellulitis of left lower limb; D72.829 Elevated white blood cell count, unspecified; R79.89 Other specified abnormal findings of blood chemistry; B95.1 Streptococcus, group B, as the cause of diseases classified elsewhere; J40 Bronchitis, not specified as acute or chronic
CPT/HCPCS: 36415; 80053; 85007; 85025; 87075; 87426; 93971; 96365; A4930; A6402; J0690; J1100; J2250; J2405; J2543; J2704; J3010; J3370; J3490; J7030; J7040; J7050; 99285-25; G0378